=== PATIENT | male | born 1960 | race African-American/Black ===

== ENCOUNTER 2020-03-02 10:59 | Outpatient (REF) | payer OTHER, SELFPAY ==
[2020-03-02 12:31] LABS: MANUAL DIFF FLAG NO
[2020-03-02 12:51] LABS: Basophils Percent Auto 0.7 % (0-2); Eosinophils Absolute Auto 0.2 X10*3/uL (0.0-0.4); Eosinophils Percent Auto 4.9 % (0-4); Hematocrit 34.3 % (42-52); Hemoglobin 10.5 g/dl (14.0-18.0); Imm Gran Abs Auto 0.01 X10*3/uL (0.00-0.03); Imm Gran Pct Auto 0.2 % (0.0-0.4); Lymphocytes Absolute Auto 1.5 X10*3/uL (1.2-4.9); Lymphocytes Percent Auto 32.8 % (20-40); Mean Corpuscular HGB Conc 30.6 g/dl (31.0-36.0); Mean Corpuscular Hemoglobin 23.6 pg (27.0-33.0); Mean Corpuscular Volume 77.3 fL (80-98); Mean Platelet Volume 10.5 fL (9.4-12.4); Monocytes Absolute Auto 0.4 X10*3/uL (0.1-1.2); Monocytes Percent Auto 9.2 % (2-11); Neutrophils Absolute Auto 2.3 X10*3/uL (2.0-8.3); Neutrophils Percent Auto 52.2 % (45-73); Platelet Count 247 X10*3/uL (160-400); Red Blood Count 4.44 X10*6/uL (4.60-5.80); Red Cell Distribution Width 16.5 % (11.0-16.0); White Blood Count 4.5 X10*3/uL (4.8-10.8)
[2020-03-02 13:10] LABS: Alanine Aminotransferase 18 U/L (0-40); Albumin Level 3.8 g/dL (3.5-5.0); Alkaline Phosphatase 107 U/L (39-117); Anion Gap 10 (12-20); Aspartate Amino Transferase 14 U/L (5-37); Bilirubin Total 0.4 mg/dL (0.0-1.0); Blood Urea Nitrogen 33 mg/dL (9-16); C Reactive Protein 0.28 mg/dL (< or = 0.50); Calcium 8.6 mg/dL (8.4-10.2); Carbon Dioxide 31 mmol/L (22-29); Chloride 106 mmol/L (96-108); Estimated Glomerular Filt Rate 29; Glucose Random 139 mg/dL (60-115); Potassium 4.6 mmol/l (3.3-5.1); Sodium 142 mmol/L (135-145); Total Protein 6.3 g/dL (6.5-8.0)
[2020-03-02 13:42] LABS: Erythrocyte Sedimentation Rate 7 MM/HR (0-15)
== END 2020-03-02 11:00 | disposition home or self-care (01) ==
LOC: HO.LAB 10:59
PROVIDERS: PCP Physician Assistant Medical; Visit Provider Student in an Organized Health Care Education/Training Program
DX: M05.9 Rheumatoid arthritis with rheumatoid factor, unspecified (principal)
CPT/HCPCS: 36415; 80053; 85025; 85652; 86140

== ENCOUNTER → 2020-03-07 10:47 | Outpatient (BNVA) | payer OTHER, SELFPAY | PROVIDERS: PCP Physician Assistant Medical; Referring Provider Physician Assistant Medical; Visit Provider Student in an Organized Health Care Education/Training Program | DX: M05.9 Rheumatoid arthritis with rheumatoid factor, unspecified (principal); M19.012 Primary osteoarthritis, left shoulder; M19.011 Primary osteoarthritis, right shoulder; Z79.899 Other long term (current) drug therapy | CPT/HCPCS: 99212 ==

== ENCOUNTER 2020-07-03 09:29 | Outpatient (REF) | payer OTHER, SELFPAY ==
[2020-07-03 10:18] LABS: MANUAL DIFF FLAG NO
[2020-07-03 10:23] LABS: Basophils Percent Auto 0.2 % (0-2); Eosinophils Absolute Auto 0.2 X10*3/uL (0.0-0.4); Eosinophils Percent Auto 3.8 % (0-4); Hematocrit 33.1 % (42-52); Hemoglobin 9.9 g/dl (14.0-18.0); Imm Gran Abs Auto 0.02 X10*3/uL (0.00-0.03); Imm Gran Pct Auto 0.4 % (0.0-0.4); Lymphocytes Absolute Auto 1.7 X10*3/uL (1.2-4.9); Lymphocytes Percent Auto 37.2 % (20-40); Mean Corpuscular HGB Conc 29.9 g/dl (31.0-36.0); Mean Corpuscular Hemoglobin 23.1 pg (27.0-33.0); Mean Corpuscular Volume 77.2 fL (80-98); Mean Platelet Volume 9.6 fL (9.4-12.4); Monocytes Absolute Auto 0.7 X10*3/uL (0.1-1.2); Neutrophils Percent Auto 43.4 % (45-73); Platelet Count 231 X10*3/uL (160-400); Red Blood Count 4.29 X10*6/uL (4.60-5.80); Red Cell Distribution Width 16.9 % (11.0-16.0); White Blood Count 4.5 X10*3/uL (4.8-10.8)
[2020-07-03 10:48] LABS: Alanine Aminotransferase 20 U/L (0-40); Albumin Level 3.8 g/dL (3.5-5.0); Alkaline Phosphatase 127 U/L (39-117); Anion Gap 13 (12-20); Aspartate Amino Transferase 17 U/L (5-37); Bilirubin Total 0.6 mg/dL (0.0-1.0); Blood Urea Nitrogen 24 mg/dL (9-16); C Reactive Protein 1.94 mg/dL (< or = 0.50); Calcium 8.6 mg/dL (8.4-10.2); Carbon Dioxide 25 mmol/L (22-29); Chloride 106 mmol/L (96-108); Estimated Glomerular Filt Rate 27; Glucose Random 108 mg/dL (60-115); Potassium 3.6 mmol/L (3.3-5.1); Sodium 140 mmol/L (135-145); Total Protein 6.4 g/dL (6.5-8.0)
[2020-07-03 11:28] LABS: Erythrocyte Sedimentation Rate 19 MM/HR (0-15)
== END 2020-07-03 09:30 | disposition home or self-care (01) ==
LOC: HO.LAB 09:29
PROVIDERS: PCP Physician Assistant Medical; Visit Provider Student in an Organized Health Care Education/Training Program
DX: M05.9 Rheumatoid arthritis with rheumatoid factor, unspecified (principal)
CPT/HCPCS: 36415; 80053; 85025; 85652; 86140

== ENCOUNTER → 2020-07-05 10:41 | Outpatient (BNVA) | payer OTHER, SELFPAY | PROVIDERS: Visit Provider Student in an Organized Health Care Education/Training Program | DX: M05.9 Rheumatoid arthritis with rheumatoid factor, unspecified (principal) | CPT/HCPCS: 99212 ==

== ENCOUNTER 2020-10-05 10:20 | Outpatient (REF) | payer OTHER, SELFPAY ==
[2020-10-05 11:31] LABS: MANUAL DIFF FLAG NO
[2020-10-05 11:35] LABS: Basophils Percent Auto 0.5 % (0-2); Eosinophils Absolute Auto 0.4 X10*3/uL (0.0-0.4); Eosinophils Percent Auto 9.7 % (0-4); Hematocrit 32.2 % (42-52); Hemoglobin 9.9 g/dl (14.0-18.0); Imm Gran Abs Auto 0.01 X10*3/uL (0.00-0.03); Imm Gran Pct Auto 0.2 % (0.0-0.4); Lymphocytes Absolute Auto 1.4 X10*3/uL (1.2-4.9); Lymphocytes Percent Auto 32.3 % (20-40); Mean Corpuscular HGB Conc 30.7 g/dl (31.0-36.0); Mean Corpuscular Hemoglobin 23.1 pg (27.0-33.0); Mean Corpuscular Volume 75.1 fL (80-98); Mean Platelet Volume 9.6 fL (9.4-12.4); Monocytes Absolute Auto 0.5 X10*3/uL (0.1-1.2); Monocytes Percent Auto 10.2 % (2-11); Neutrophils Absolute Auto 2.1 X10*3/uL (2.0-8.3); Neutrophils Percent Auto 47.1 % (45-73); Platelet Count 241 X10*3/uL (160-400); Red Blood Count 4.29 X10*6/uL (4.60-5.80); Red Cell Distribution Width 18.3 % (11.0-16.0); White Blood Count 4.4 X10*3/uL (4.8-10.8)
[2020-10-05 12:07] LABS: Alanine Aminotransferase 32 U/L (0-40); Albumin Level 3.6 g/dL (3.5-5.0); Alkaline Phosphatase 120 U/L (39-117); Anion Gap 7 (12-20); Aspartate Amino Transferase 23 U/L (5-37); Bilirubin Total 0.4 mg/dL (0.0-1.0); Blood Urea Nitrogen 28 mg/dL (9-16); C Reactive Protein 0.24 mg/dL (< or = 0.50); Calcium 8.7 mg/dL (8.4-10.2); Carbon Dioxide 29 mmol/L (22-29); Chloride 110 mmol/L (96-108); Estimated Glomerular Filt Rate 28; Glucose Random 83 mg/dL (60-115); Potassium 4.1 mmol/L (3.3-5.1); Sodium 142 mmol/L (135-145); Total Protein 6.1 g/dL (6.5-8.0)
[2020-10-05 12:14] LABS: Erythrocyte Sedimentation Rate 27 MM/HR (0-15)
== END 2020-10-05 10:21 | disposition home or self-care (01) ==
LOC: HO.LAB 10:20
PROVIDERS: PCP Physician Assistant Medical; Visit Provider Student in an Organized Health Care Education/Training Program
DX: M05.9 Rheumatoid arthritis with rheumatoid factor, unspecified (principal); Z79.899 Other long term (current) drug therapy; Z87.891 Personal history of nicotine dependence
CPT/HCPCS: 36415; 80053; 85025; 85652; 86140; 99212

== ENCOUNTER 2020-12-29 09:23 | Outpatient (REF) | payer OTHER, SELFPAY ==
[2020-12-29 11:32] LABS: MANUAL DIFF FLAG NO
[2020-12-29 11:38] LABS: Basophils Percent Auto 0.7 % (0-2); Eosinophils Absolute Auto 0.3 X10*3/uL (0.0-0.4); Eosinophils Percent Auto 6.5 % (0-4); Hematocrit 32.8 % (42-52); Hemoglobin 9.9 g/dl (14.0-18.0); Imm Gran Abs Auto 0.01 X10*3/uL (0.00-0.03); Imm Gran Pct Auto 0.2 % (0.0-0.4); Lymphocytes Absolute Auto 1.4 X10*3/uL (1.2-4.9); Lymphocytes Percent Auto 32.9 % (20-40); Mean Corpuscular HGB Conc 30.2 g/dl (31.0-36.0); Mean Corpuscular Hemoglobin 23.1 pg (27.0-33.0); Mean Corpuscular Volume 76.5 fL (80-98); Monocytes Absolute Auto 0.5 X10*3/uL (0.1-1.2); Monocytes Percent Auto 10.9 % (2-11); Neutrophils Absolute Auto 2.1 X10*3/uL (2.0-8.3); Neutrophils Percent Auto 48.8 % (45-73); Platelet Count 263 X10*3/uL (160-400); Red Blood Count 4.29 X10*6/uL (4.60-5.80); Red Cell Distribution Width 16.9 % (11.0-16.0); White Blood Count 4.3 X10*3/uL (4.8-10.8)
[2020-12-29 12:16] LABS: Erythrocyte Sedimentation Rate 26 MM/HR (0-15)
[2020-12-29 12:23] LABS: Alanine Aminotransferase 24 U/L (0-40); Albumin Level 4.3 g/dL (3.5-5.0); Alkaline Phosphatase 122 U/L (39-117); Anion Gap 12 (12-20); Aspartate Amino Transferase 17 U/L (5-37); Bilirubin Total 0.5 mg/dL (0.0-1.0); Blood Urea Nitrogen 49 mg/dL (9-16); C Reactive Protein 0.42 mg/dL (< or = 0.50); Calcium 9.6 mg/dL (8.4-10.2); Carbon Dioxide 24 mmol/L (22-29); Chloride 110 mmol/L (96-108); Estimated Glomerular Filt Rate 20; Glucose Random 72 mg/dL (60-115); Sodium 140 mmol/L (135-145); Total Protein 7.2 g/dL (6.5-8.0)
[2020-12-29 16:23] LABS: Iron 59 mcg/dL (45-160); Percent Iron Saturation 20 % (15-50); Total Iron Binding Capacity 294 mcg/dL (228-428); Unsaturated Iron Binding 235 ug/dL
[2020-12-29 16:43] LABS: Ferritin 202 ng/mL (20-250)
== END 2020-12-29 09:24 | disposition home or self-care (01) ==
LOC: HO.LAB 09:23
PROVIDERS: PCP Physician Assistant Medical; Visit Provider Nurse Practitioner Family
DX: M05.9 Rheumatoid arthritis with rheumatoid factor, unspecified (principal); D64.9 Anemia, unspecified; Z79.899 Other long term (current) drug therapy; Z87.891 Personal history of nicotine dependence
CPT/HCPCS: 36415; 80053; 82728; 83540; 85025; 85652; 86140

== ENCOUNTER 2021-04-09 12:21 | Outpatient (REF) | payer OTHER, SELFPAY ==
[2021-04-09 13:39] LABS: MANUAL DIFF FLAG NO
[2021-04-09 14:35] LABS: Basophils Percent Auto 0.4 % (0-2); Eosinophils Absolute Auto 0.2 X10*3/uL (0.0-0.4); Eosinophils Percent Auto 5.2 % (0-4); Hematocrit 32.4 % (42.0-52.0); Hemoglobin 9.9 g/dl (14.0-18.0); Lymphocytes Absolute Auto 1.6 X10*3/uL (1.2-4.9); Lymphocytes Percent Auto 36.8 % (20-40); Mean Corpuscular HGB Conc 30.6 g/dl (31.0-36.0); Mean Corpuscular Hemoglobin 23.9 pg (27.0-33.0); Mean Corpuscular Volume 78.1 fL (80.0-98.0); Mean Platelet Volume 9.9 fL (9.4-12.4); Monocytes Absolute Auto 0.6 X10*3/uL (0.1-1.2); Monocytes Percent Auto 12.6 % (2-11); Platelet Count 210 X10*3/uL (160-400); Red Blood Count 4.15 X10*6/uL (4.60-5.80); Red Cell Distribution Width 16.9 % (11.0-16.0); White Blood Count 4.5 X10*3/uL (4.8-10.8)
[2021-04-09 15:03] LABS: Alanine Aminotransferase 24 U/L (0-40); Albumin Level 4.2 g/dL (3.5-5.0); Alkaline Phosphatase 106 U/L (39-117); Anion Gap 11 (12-20); Aspartate Amino Transferase 18 U/L (5-37); Bilirubin Total 0.4 mg/dL (0.0-1.0); Blood Urea Nitrogen 56 mg/dL (9-16); C Reactive Protein 0.36 mg/dL (< or = 0.50); Calcium 9.4 mg/dL (8.4-10.2); Carbon Dioxide 24 mmol/L (22-29); Chloride 111 mmol/L (96-108); Estimated Glomerular Filt Rate 17; Glucose Random 77 mg/dL (60-115); Potassium 5.4 mmol/L (3.3-5.1); Sodium 141 mmol/L (135-145); Total Protein 6.9 g/dL (6.5-8.0)
[2021-04-09 15:17] LABS: Erythrocyte Sedimentation Rate 13 MM/HR (0-15)
== END 2021-04-09 12:22 | disposition home or self-care (01) ==
LOC: HO.LAB 12:21
PROVIDERS: PCP Physician Assistant Medical; Visit Provider Nurse Practitioner Family
DX: M05.9 Rheumatoid arthritis with rheumatoid factor, unspecified (principal)
CPT/HCPCS: 36415; 80053; 85025; 85652; 86140; 99212

== ENCOUNTER 2021-07-05 09:42 | Outpatient (REF) | payer OTHER, SELFPAY ==
[2021-07-05 10:03] LABS: MANUAL DIFF FLAG NO
[2021-07-05 10:23] LABS: Basophils Percent Auto 0.5 % (0-2); Eosinophils Absolute Auto 0.2 X10*3/uL (0.0-0.4); Eosinophils Percent Auto 5.2 % (0-4); Hematocrit 33.9 % (42.0-52.0); Hemoglobin 10.2 g/dl (14.0-18.0); Lymphocytes Absolute Auto 1.2 X10*3/uL (1.2-4.9); Lymphocytes Percent Auto 33.8 % (20-40); Mean Corpuscular HGB Conc 30.1 g/dl (31.0-36.0); Mean Corpuscular Hemoglobin 23.1 pg (27.0-33.0); Mean Corpuscular Volume 76.7 fL (80.0-98.0); Mean Platelet Volume 9.2 fL (9.4-12.4); Monocytes Absolute Auto 0.4 X10*3/uL (0.1-1.2); Monocytes Percent Auto 9.6 % (2-11); Neutrophils Absolute Auto 1.9 x10*3/uL (2.0-8.3); Neutrophils Percent Auto 50.9 % (45-73); Platelet Count 197 X10*3/uL (160-400); Red Blood Count 4.42 X10*6/uL (4.60-5.80); Red Cell Distribution Width 16.6 % (11.0-16.0); White Blood Count 3.6 X10*3/uL (4.8-10.8)
[2021-07-05 11:00] LABS: Alanine Aminotransferase 24 U/L (0-40); Albumin Level 4.1 g/dL (3.5-5.0); Alkaline Phosphatase 107 U/L (39-117); Anion Gap 14 (12-20); Aspartate Amino Transferase 15 U/L (5-37); Bilirubin Total 0.4 mg/dL (0.0-1.0); Blood Urea Nitrogen 53 mg/dL (9-16); C Reactive Protein 0.22 mg/dL (< or = 0.50); Calcium 9.3 mg/dL (8.4-10.2); Carbon Dioxide 22 mmol/L (22-29); Chloride 110 mmol/L (96-108); Estimated Glomerular Filt Rate 20; Glucose Random 115 mg/dL (60-115); Potassium 5.6 mmol/L (3.3-5.1); Sodium 140 mmol/L (135-145); Total Protein 6.9 g/dL (6.5-8.0)
[2021-07-05 11:13] LABS: Erythrocyte Sedimentation Rate 8 MM/HR (0-15)
== END 2021-07-05 09:43 | disposition home or self-care (01) ==
LOC: HO.LAB 09:42
PROVIDERS: PCP Physician Assistant Medical; Visit Provider Nurse Practitioner Family
DX: M05.9 Rheumatoid arthritis with rheumatoid factor, unspecified (principal)
CPT/HCPCS: 36415; 80053; 85025; 85652; 86140

== ENCOUNTER 2021-07-05 16:51 | Emergency (ER) | payer OTHER, SELFPAY ==
[2021-07-05 17:03] VITALS: BP 154/67; PULSE 61; RESP 19; TEMP 36.6; O2SAT 96; BMI 46.5
--- NOTE | 2021-07-05 17:08 | ECG_ITS ---
Test Reason : ABNORMAL LABS Blood Pressure : / mmHG Vent. Rate : 054 BPM Atrial Rate : 054 BPM P-R Int : 190 ms QRS Dur : 106 ms QT Int : 430 ms P-R-T Axes : 058 -19 069 degrees QTc Int : 407 ms Sinus bradycardia Nonspecific T wave abnormality Abnormal ECG No previous ECGs available Referred By: Generic ED Physician Electronically Signed By:RHEA DE LA GARZA
[2021-07-05 18:36] LABS: MANUAL DIFF FLAG NO
[2021-07-05 18:39] LABS: Basophils Percent Auto 0.5 % (0-2); Eosinophils Absolute Auto 0.2 X10*3/uL (0.0-0.4); Eosinophils Percent Auto 4.4 % (0-4); Hematocrit 34.9 % (42.0-52.0); Hemoglobin 10.7 g/dl (14.0-18.0); Imm Gran Abs Auto 0.01 X10*3/uL (0.00-0.03); Imm Gran Pct Auto 0.2 % (0.0-0.4); Lymphocytes Absolute Auto 1.6 X10*3/uL (1.2-4.9); Lymphocytes Percent Auto 36.6 % (20-40); Mean Corpuscular HGB Conc 30.7 g/dl (31.0-36.0); Mean Corpuscular Hemoglobin 23.6 pg (27.0-33.0); Mean Platelet Volume 8.9 fL (9.4-12.4); Monocytes Absolute Auto 0.5 X10*3/uL (0.1-1.2); Monocytes Percent Auto 11.7 % (2-11); Neutrophils Percent Auto 46.6 % (45-73); Platelet Count 192 X10*3/uL (160-400); Red Blood Count 4.53 X10*6/uL (4.60-5.80); Red Cell Distribution Width 16.9 % (11.0-16.0); White Blood Count 4.3 X10*3/uL (4.8-10.8)
[2021-07-05 18:58] LABS: Anion Gap 15 (12-20); Blood Urea Nitrogen 54 mg/dL (9-16); Calcium 9.1 mg/dL (8.4-10.2); Carbon Dioxide 22 mmol/L (22-29); Chloride 108 mmol/L (96-108); Creatinine Clr Calc Pharmacy 29.2; Estimated Glomerular Filt Rate 17; Glucose Random 77 mg/dL (60-115); Potassium 5.9 mmol/L (3.3-5.1); Sodium 139 mmol/L (135-145); Troponin-I High Sensitivity 8.7 ng/L (<3.5-35.0)
[2021-07-05 22:19] VITALS: BP 141/70; PULSE 54; RESP 16; TEMP 36.5; O2SAT 98
--- NOTE | 2021-07-06 00:23 | ED_ITS ---
HPI - General Adult General Chief complaint: Recheck/Abnormal Lab/Rx Stated complaint: checked 07/04, high potassium lvls Time Seen by Provider: 07/06/21 00:22 Source: patient Mode of arrival: ambulatory History of Present Illness HPI narrative: 61-year-old male who presents with chronic abnormal potassium levels and was instructed to follow-up here at the emergency room. Patient has history of atrial fibrillation is currently on anticoagulation as well as hypertension, diabetes. Patient denies any muscle cramping, chest pain/palpitations, shortness of breath. Related Data Home Medications Medication Instructions Recorded Confirmed atorvastatin 80 mg tablet 80 mg PO DAILY 03/07/20 04/09/21 carboxymethylcellulose sodium 0.5 1 drp OPHTHALMIC (EYE) QID PRN 03/07/20 04/09/21 % eye drops cholecalciferol (vitamin D3) 25 25 mcg PO DAILY 03/07/20 04/09/21 mcg (1,000 unit) capsule colchicine 0.6 mg tablet 0.6 mg PO DAILY PRN 03/07/20 04/09/21 finasteride 5 mg tablet 5 mg PO DAILY 03/07/20 04/09/21 furosemide 40 mg tablet 40 mg PO DAILY 03/07/20 04/09/21 gabapentin 600 mg tablet 600 mg PO BEDTIME 03/07/20 04/09/21 glipizide 5 mg tablet 5 mg PO BID 03/07/20 04/09/21 labetalol 300 mg tablet 300 mg PO BID 03/07/20 04/09/21 magnesium oxide 420 mg tablet 420 mg PO DAILY 03/07/20 04/09/21 rivaroxaban 20 mg tablet (Xarelto) 20 mg PO DAILY 03/07/20 04/09/21 sodium bicarbonate 650 mg tablet 650 mg PO BID 03/07/20 04/09/21 spironolactone 25 mg tablet 25 mg PO DAILY 03/07/20 04/09/21 valsartan 160 mg tablet 160 mg PO DAILY 03/07/20 04/09/21 hydralazine 100 mg tablet 100 mg PO TID tab 12/29/20 04/09/21 Previous Rx's Medication Instructions Recorded adalimumab 40 mg/0.8 mL 40 mg (0.8 mL) SUBCUT Q2W #2 ea 02/21/21 subcutaneous syringe kit (HumRico) sodium zirconium cyclosilicate 10 10 g PO TID 7 Days #30 ea 07/06/21 gram oral powder packet (Lokelma) Allergies Allergy/AdvReac Type Severity Reaction Status Date / Time morphine Allergy Intermediate itchiness Verified 04/09/21 12:43 ibuprofen Allergy Unknown kidney Verified 04/09/21 12:43 disease Review of Systems Review of Systems: Pertinent positives and negatives as stated in HPI 10 point review of systems is otherwise negative. PMFSH Past Medical History Source: nursing notes reviewed Medical History Afib Diabetes HTN (hypertension) Kidney disease Seropositive rheumatoid arthritis Social History Social History Alcohol intake: current Alcohol intake frequency: holidays/special occasions only Alcohol type: wine Patient Tobacco Use Status: Former Tobacco user Cigarettes Per Day: 5 Years Smoked: 20 Advance Directives: No Advance Directives Information Provided: No Physical Exam ED Vital Signs: Vital Signs - 24 hr 07/05/21 17:03 07/05/21 22:19 07/06/21 01:29 Temperature 98 F 97.7 F Pulse Rate 61 54 51 Respiratory Rate 19 16 20 Blood Pressure 154/67 H 141/70 H 137/67 Pulse Oximetry 96 98 98 07/06/21 01:39 Temperature 97.8 F Pulse Rate Respiratory Rate Blood Pressure Pulse Oximetry BMI result Body Mass Index 46.5 VITAL SIGNS: Reviewed. GENERAL: Well developed, well nourished, in no acute distress. HEAD: Normocephalic/atraumatic EYES: PERRLA, EOMI EARS: Ext canals without abnormality OROPHARYNX: no oral lesions noted, posterior pharynx clear LUNGS: Normal breath sounds. No adventitious sounds or accessory muscle use. SpO2<96> CARDIOVASCULAR: Regular rate and rhythm without noted murmurs, no JVD or lower extremity edema. ABDOMEN: Soft, non-tender, non-distended with bowel sounds. MUSCULOSKELETAL: No tenderness, deformities, or effusions noted on gross inspection. EXTREMITIES: No cyanosis, clubbing or edema. SKIN: Inspection of the skin reveals no rashes NEUROLOGIC: Alert and oriented x 4. Strength and sensation to light touch were grossly intact x 4. Course Course Course Narrative: 61[facility]ology [facility] at [facility] and on review of previous results has had consistent worsening of potassium levels with known CKD. Patient states that his physician at the [facility] did lower the dosage of his spironolactone and that he is in the process of following up with Nephrology. Otherwise, he has no cardiac or muscular complaints. On review of all investigations the potassium is noted to be 5.9 but he is otherwise asymptomatic and will received Lokelma as well as 500 cc of normal saline. He will then be discharged home in stable condition with instructions to follow-up with outpatient lab work as well as contacting his primary care provider at the [facility] as well as discussing the plan with rheumatology. Patient is otherwise hemodynamically stable. Medical Decision Making Lab Data Result diagrams: 07/05/21 18:32 07/05/21 18:32 Labs: Lab Results 07/05/21 07/05/21 07/05/21 Range/Units 18:32 18:32 18:32 WBC 4.3 L (4.8-10.8) X10*3/uL RBC 4.53 L (4.60-5.80) X10*6/uL Hgb 10.7 L (14.0-18.0) g/dl Hct 34.9 L (42.0-52.0) % MCV 77.0 L (80.0-98.0) fL MCH 23.6 L (27.0-33.0) pg MCHC 30.7 L (31.0-36.0) g/dl RDW 16.9 H (11.0-16.0) % Plt Count 192 (160-400) X10*3/uL MPV 8.9 L (9.4-12.4) fL Immature Gran % (Auto) 0.2 (0.0-0.4) % Neut % (Auto) 46.6 (45-73) % Lymph % (Auto) 36.6 (20-40) % Stewart % (Auto) 11.7 H (2-11) % Eos % (Auto) 4.4 H (0-4) % Baso % (Auto) 0.5 (0-2) % Lymph # (Auto) 1.6 (1.2-4.9) X10*3/uL Stewart # (Auto) 0.5 (0.1-1.2) X10*3/uL Eos # (Auto) 0.2 (0.0-0.4) X10*3/uL Baso # (Auto) 0.0 (0.0-0.2) X10*3/uL Abs Immat Gran (auto) 0.01 (0.00-0.03) X10*3/uL Absolute Neuts (auto) 2.0 (2.0-8.3) x10*3/uL Absolute Nucleated RBC 0.000 (0.0-0.012) X10*3/uL Nucleated RBC % (auto) 0.0 (0.0-0.2) /100WBC Sodium 139 (135-145) mmol/L Potassium 5.9 H (3.3-5.1) mmol/L Chloride 108 (96-108) mmol/L Carbon Dioxide 22 (22-29) mmol/L Anion Gap 15 (12-20) BUN 54 H (9-16) mg/dL Creatinine 3.69 H (0.5-1.4) mg/dL Estim Creat Clear Calc 29.2 Estimated GFR 17 Random Glucose 77 (60-115) mg/dL Calcium 9.1 (8.4-10.2) mg/dL Troponin I High Sens 8.7 (<3.5-35.0) ng/L Discharge Plan Discharge Clinical Impression: CKD (chronic kidney disease), Chronic hyperkalemia Patient Disposition: Home, Self-Care Instructions: Chronic Kidney Disease (ED), Potassium Content of Foods List (ED), Hyperkalemia (ED) Additional Instructions: 1. Resume all home medications as prescribed. 2. You have been started on Lokelma, which is a medication to help address your potassium levels. Please take as prescribed and inform your physician that you have been started on this medication. 3. In addition, please review the list of potassium containing foods and try to avoid these as much as possible. 4. You need to repeat your potassium levels today. 5. Please call your primary care provider as well as your customs import specialist and inform them that you have been started on the above medication and that you need to have your lab work followed up. Do not hesitate to return to the emergency room for any worsening or development of chest pain/palpitations/muscle cramping. Prescriptions: New Lokelma 10 gram powder in packet 10 g PO TID 7 Days Qty: 30 0RF No Action Humira 40 mg/0.8 mL syringe kit 40 mg subcut Q2W Qty: 2 3RF Xarelto 20 mg tablet 20 mg PO DAILY 0RF Rx Instructions: must administer with evening meal glipizide 5 mg tablet 5 mg PO BID 0RF spironolactone 25 mg tablet 25 mg PO DAILY 0RF cholecalciferol (vitamin D3) 25 mcg (1,000 unit) capsule 25 mcg PO DAILY 0RF finasteride 5 mg tablet 5 mg PO DAILY 0RF atorvastatin 80 mg tablet 80 mg PO DAILY 0RF valsartan 160 mg tablet 160 mg PO DAILY 0RF furosemide 40 mg tablet 40 mg PO DAILY 0RF labetalol 300 mg tablet 300 mg PO BID 0RF sodium bicarbonate 650 mg tablet 650 mg PO BID 0RF gabapentin 600 mg tablet 600 mg PO BEDTIME 0RF colchicine 0.6 mg tablet 0.6 mg PO DAILY PRN0RF magnesium oxide 420 mg tablet 420 mg PO DAILY 0RF carboxymethylcellulose sodium 0.5 % drops 1 drp ophthalmic (eye) QID PRN0RF hydralazine 100 mg tablet 100 mg PO TID 0RF
[2021-07-06] MEDS: Sodium Zirconium Cyclosilicate 10 GM POWD.PACK PO (01:05)
[2021-07-06] MEDS: 0.9 % Sodium Chloride 500 ML 999 ML IV (01:15)
[2021-07-06 01:29] VITALS: BP 137/67; PULSE 51; RESP 20; O2SAT 98
[2021-07-06 01:39] VITALS: TEMP 36.6
--- NOTE | 2021-07-06 02:33 | PC.NURSE ---
I assumed nursing care of this patient upon his arrival to bed 14 from the waiting room. He states he was sent to the ED due to eleveated serum potassium levels. he states they're always sending me here for this. Always. he has no complaints. He has remained alert and oriented x 3, makes eye contact with Rn and has been calm and cooperative and extremely pleasant and appreciative. No chest pain. No SOB. Speech clear and appropriate. he has been ambulating throughout his room independently and with steady gait. No nausea. No vomiting. he is taking PO fluids without difficulty. IV access was obtained on Piero and 1/2 L NS was given per MD order. He huff been discharged at this time and has verbalized an understanding of all DC orders. He ambulated out of the ED independently and with steady gait.
== END 2021-07-06 02:43 | disposition home or self-care (01) ==
PROVIDERS: Emergency Provider Student in an Organized Health Care Education/Training Program
DX: E87.5 Hyperkalemia (principal); E11.22 Type 2 diabetes mellitus with diabetic chronic kidney disease; I12.9 Hypertensive chronic kidney disease with stage 1 through stage 4 chronic kidney disease, or unspecified chronic kidney disease; N18.9 Chronic kidney disease, unspecified; I48.91 Unspecified atrial fibrillation; Z79.02 Long term (current) use of antithrombotics/antiplatelets; Z79.01 Long term (current) use of anticoagulants
CPT/HCPCS: 36415; 80048; 84484; 85025; 93005; 99283; 99284

== ENCOUNTER → 2021-07-06 13:20 | Outpatient (BNVA) | payer OTHER, SELFPAY | PROVIDERS: PCP Physician Assistant Medical; Visit Provider Nurse Practitioner Family | DX: M05.9 Rheumatoid arthritis with rheumatoid factor, unspecified (principal); M25.512 Pain in left shoulder; N28.9 Disorder of kidney and ureter, unspecified | CPT/HCPCS: 99212 ==

== ENCOUNTER 2021-07-18 10:27 | Outpatient (REF) | payer OTHER, SELFPAY ==
--- NOTE | ~2021-07-18 | XR_ITS ---
EXAMINATION: XR SHOULDER, LEFT CLINICAL INFORMATION: Chronic left shoulder pain COMPARISON: None TECHNIQUE: Four views of the left shoulder. FINDINGS: No fracture or dislocation. The glenohumeral joint is well aligned. There is narrowing of the joint space with subchondral sclerosis. Prominent osteophytes. The acromioclavicular joint is intact with prominent hypertrophic degenerative change. The visualized lung is clear. The visualized ribs are intact. XR/XR shoulder LT min 2V IMPRESSION: Severe degenerative changes at the left shoulder.
== END 2021-07-18 10:28 | disposition home or self-care (01) ==
LOC: HO.XRAY 10:27
PROVIDERS: PCP Physician Assistant Medical; Visit Provider Nurse Practitioner Family
DX: M25.512 Pain in left shoulder (principal)
CPT/HCPCS: 73030

== ENCOUNTER 2021-10-09 15:19 | Outpatient (REF) | payer OTHER, SELFPAY ==
[2021-10-09 15:30] LABS: MANUAL DIFF FLAG NO
[2021-10-09 15:40] LABS: Basophils Percent Auto 0.4 % (0-2); Eosinophils Absolute Auto 0.2 X10*3/uL (0.0-0.4); Eosinophils Percent Auto 4.7 % (0-4); Hematocrit 31.8 % (42.0-52.0); Hemoglobin 9.9 g/dl (14.0-18.0); Imm Gran Abs Auto 0.01 X10*3/uL (0.00-0.03); Imm Gran Pct Auto 0.2 % (0.0-0.4); Lymphocytes Absolute Auto 1.8 X10*3/uL (1.2-4.9); Lymphocytes Percent Auto 38.9 % (20-40); Mean Corpuscular HGB Conc 31.1 g/dl (31.0-36.0); Mean Corpuscular Hemoglobin 23.9 pg (27.0-33.0); Mean Corpuscular Volume 76.8 fL (80.0-98.0); Mean Platelet Volume 9.5 fL (9.4-12.4); Monocytes Absolute Auto 0.5 X10*3/uL (0.1-1.2); Monocytes Percent Auto 9.7 % (2-11); Neutrophils Absolute Auto 2.2 x10*3/uL (2.0-8.3); Neutrophils Percent Auto 46.1 % (45-73); Platelet Count 213 X10*3/uL (160-400); Red Blood Count 4.14 X10*6/uL (4.60-5.80); Red Cell Distribution Width 17.4 % (11.0-16.0); White Blood Count 4.7 X10*3/uL (4.8-10.8)
[2021-10-09 16:17] LABS: Erythrocyte Sedimentation Rate 10 MM/HR (0-15)
[2021-10-09 16:25] LABS: Alanine Aminotransferase 17 U/L (0-40); Albumin Level 4.4 g/dL (3.5-5.0); Alkaline Phosphatase 108 U/L (39-117); Anion Gap 12 (12-20); Aspartate Amino Transferase 14 U/L (5-37); Bilirubin Total 0.5 mg/dL (0.0-1.0); Blood Urea Nitrogen 54 mg/dL (9-16); C Reactive Protein 0.39 mg/dL (< or = 0.50); Calcium 8.8 mg/dL (8.4-10.2); Carbon Dioxide 22 mmol/L (22-29); Chloride 109 mmol/L (96-108); Estimated Glomerular Filt Rate 19; Glucose Random 68 mg/dL (60-115); Potassium 4.9 mmol/L (3.3-5.1); Sodium 138 mmol/L (135-145); Total Protein 7.2 g/dL (6.5-8.0)
== END 2021-10-09 15:20 | disposition home or self-care (01) ==
LOC: HO.LAB 15:19
PROVIDERS: PCP Physician Assistant Medical; Visit Provider Nurse Practitioner Family
DX: M05.9 Rheumatoid arthritis with rheumatoid factor, unspecified (principal); M25.512 Pain in left shoulder; N28.9 Disorder of kidney and ureter, unspecified
CPT/HCPCS: 36415; 80053; 85025; 85652; 86140; 99212

== ENCOUNTER → 2022-02-26 12:57 | Outpatient (BNVA) | payer OTHER, SELFPAY | PROVIDERS: PCP Physician Assistant Medical; Visit Provider Nurse Practitioner Family | DX: M05.9 Rheumatoid arthritis with rheumatoid factor, unspecified (principal); N28.9 Disorder of kidney and ureter, unspecified | CPT/HCPCS: 99212 ==

== ENCOUNTER 2022-03-08 10:23 | Outpatient (REF) | payer OTHER, SELFPAY ==
[2022-03-08 10:33] LABS: MANUAL DIFF FLAG NO
[2022-03-08 11:57] LABS: Basophils Percent Auto 0.6 % (0-2); Eosinophils Absolute Auto 0.3 X10*3/uL (0.0-0.4); Eosinophils Percent Auto 5.5 % (0-4); Hematocrit 33.2 % (42.0-52.0); Hemoglobin 9.9 g/dl (14.0-18.0); Imm Gran Abs Auto 0.01 X10*3/uL (0.00-0.03); Imm Gran Pct Auto 0.2 % (0.0-0.4); Lymphocytes Absolute Auto 1.5 X10*3/uL (1.2-4.9); Lymphocytes Percent Auto 28.4 % (20-40); Mean Corpuscular HGB Conc 29.8 g/dl (31.0-36.0); Mean Corpuscular Hemoglobin 23.1 pg (27.0-33.0); Mean Corpuscular Volume 77.4 fL (80.0-98.0); Mean Platelet Volume 10.3 fL (9.4-12.4); Monocytes Absolute Auto 0.4 X10*3/uL (0.1-1.2); Monocytes Percent Auto 7.9 % (2-11); Neutrophils Absolute Auto 3.1 x10*3/uL (2.0-8.3); Neutrophils Percent Auto 57.4 % (45-73); Platelet Count 264 X10*3/uL (160-400); Red Blood Count 4.29 X10*6/uL (4.60-5.80); Red Cell Distribution Width 16.7 % (11.0-16.0); White Blood Count 5.4 X10*3/uL (4.8-10.8)
[2022-03-08 12:26] LABS: Alanine Aminotransferase 14 U/L (0-40); Aspartate Amino Transferase 13 U/L (5-37); C Reactive Protein 2.97 mg/dL (< or = 0.50); Estimated Glomerular Filt Rate 17
[2022-03-08 12:43] LABS: Erythrocyte Sedimentation Rate 38 MM/HR (0-15)
== END 2022-03-08 10:24 | disposition home or self-care (01) ==
LOC: HO.LAB 10:23
PROVIDERS: PCP Physician Assistant Medical; Visit Provider Nurse Practitioner Family
DX: M05.9 Rheumatoid arthritis with rheumatoid factor, unspecified (principal); Z79.899 Other long term (current) drug therapy
CPT/HCPCS: 36415; 82565; 84450; 84460; 85025; 85652; 86140

== ENCOUNTER 2022-05-13 11:34 | Outpatient (REF) | payer OTHER, SELFPAY ==
[2022-05-13 13:26] LABS: C Reactive Protein 0.26 mg/dL (< or = 0.50); Uric Acid 9.6 mg/dL (3.4-7.0)
== END 2022-05-13 11:35 | disposition home or self-care (01) ==
LOC: HO.LAB 11:34
PROVIDERS: PCP Physician Assistant Medical; Visit Provider Nurse Practitioner Family
DX: M10.9 Gout, unspecified (principal); M05.9 Rheumatoid arthritis with rheumatoid factor, unspecified
CPT/HCPCS: 36415; 84550; 86140

== ENCOUNTER → 2022-05-29 10:36 | Outpatient (BNVA) | payer OTHER, SELFPAY | PROVIDERS: PCP Physician Assistant Medical; Visit Provider Nurse Practitioner Family | DX: M05.9 Rheumatoid arthritis with rheumatoid factor, unspecified (principal); M10.9 Gout, unspecified; N28.9 Disorder of kidney and ureter, unspecified | CPT/HCPCS: 99212 ==

== ENCOUNTER 2022-07-15 11:19 | Outpatient (REF) | payer OTHER, SELFPAY ==
[2022-07-15 11:33] LABS: MANUAL DIFF FLAG NO
[2022-07-15 11:43] LABS: Basophils Percent Auto 0.4 % (0-2); Eosinophils Absolute Auto 0.2 X10*3/uL (0.0-0.4); Eosinophils Percent Auto 5.1 % (0-4); Hemoglobin 10.1 g/dl (14.0-18.0); Imm Gran Abs Auto 0.01 X10*3/uL (0.00-0.03); Imm Gran Pct Auto 0.2 % (0.0-0.4); Lymphocytes Absolute Auto 1.4 X10*3/uL (1.2-4.9); Lymphocytes Percent Auto 30.6 % (20-40); Mean Corpuscular HGB Conc 30.6 g/dl (31.0-36.0); Mean Corpuscular Hemoglobin 23.4 pg (27.0-33.0); Mean Corpuscular Volume 76.6 fL (80.0-98.0); Mean Platelet Volume 8.7 fL (9.4-12.4); Monocytes Absolute Auto 0.5 X10*3/uL (0.1-1.2); Monocytes Percent Auto 11.3 % (2-11); Neutrophils Absolute Auto 2.4 x10*3/uL (2.0-8.3); Neutrophils Percent Auto 52.4 % (45-73); Platelet Count 208 X10*3/uL (160-400); Red Blood Count 4.31 X10*6/uL (4.60-5.80); Red Cell Distribution Width 16.3 % (11.0-16.0); White Blood Count 4.7 X10*3/uL (4.8-10.8)
[2022-07-15 12:29] LABS: Erythrocyte Sedimentation Rate 14 MM/HR (0-15)
[2022-07-15 12:57] LABS: Alanine Aminotransferase 27 U/L (0-40); Aspartate Amino Transferase 16 U/L (5-37); C Reactive Protein 0.18 mg/dL (< or = 0.50); Estimated Glomerular Filt Rate 17
== END 2022-07-15 11:20 | disposition home or self-care (01) ==
LOC: HO.LAB 11:19
PROVIDERS: PCP Physician Assistant Medical; Visit Provider Nurse Practitioner Family
DX: M05.9 Rheumatoid arthritis with rheumatoid factor, unspecified (principal); Z79.899 Other long term (current) drug therapy
CPT/HCPCS: 36415; 82565; 84450; 84460; 85025; 85652; 86140

== ENCOUNTER → 2022-07-30 09:27 | Outpatient (BNVA) | payer OTHER, SELFPAY | PROVIDERS: PCP Physician Assistant Medical; Visit Provider Nurse Practitioner Family | DX: M05.9 Rheumatoid arthritis with rheumatoid factor, unspecified (principal); M10.9 Gout, unspecified; N28.9 Disorder of kidney and ureter, unspecified | CPT/HCPCS: 99212 ==

== ENCOUNTER 2022-12-24 11:15 | Outpatient (REF) | payer OTHER, SELFPAY ==
[2022-12-24 11:34] LABS: MANUAL DIFF FLAG NO
[2022-12-24 11:52] LABS: Basophils Percent Auto 0.2 % (0-2); Eosinophils Absolute Auto 0.2 X10*3/uL (0.0-0.4); Eosinophils Percent Auto 3.9 % (0-4); Hematocrit 33.7 % (42.0-52.0); Hemoglobin 10.3 g/dl (14.0-18.0); Imm Gran Abs Auto 0.01 X10*3/uL (0.00-0.03); Imm Gran Pct Auto 0.2 % (0.0-0.4); Lymphocytes Absolute Auto 1.5 X10*3/uL (1.2-4.9); Mean Corpuscular HGB Conc 30.6 g/dl (31.0-36.0); Mean Corpuscular Hemoglobin 23.9 pg (27.0-33.0); Mean Corpuscular Volume 78.2 fL (80.0-98.0); Mean Platelet Volume 9.3 fL (9.4-12.4); Monocytes Absolute Auto 0.5 X10*3/uL (0.1-1.2); Monocytes Percent Auto 9.9 % (2-11); Neutrophils Absolute Auto 2.7 x10*3/uL (2.0-8.3); Neutrophils Percent Auto 55.8 % (45-73); Platelet Count 264 X10*3/uL (160-400); Red Blood Count 4.31 X10*6/uL (4.60-5.80); Red Cell Distribution Width 16.1 % (11.0-16.0); White Blood Count 4.8 X10*3/uL (4.8-10.8)
[2022-12-24 12:29] LABS: Erythrocyte Sedimentation Rate 14 MM/HR (0-15)
[2022-12-24 12:53] LABS: Alanine Aminotransferase 24 U/L (0-40); Aspartate Amino Transferase 19 U/L (5-37); C Reactive Protein 0.39 mg/dL (< or = 0.50); Estimated Glomerular Filt Rate 16
== END 2022-12-24 11:16 | disposition home or self-care (01) ==
LOC: HO.LAB 11:15
PROVIDERS: PCP Physician Assistant Medical; Visit Provider Nurse Practitioner Family
DX: M05.9 Rheumatoid arthritis with rheumatoid factor, unspecified (principal); Z79.899 Other long term (current) drug therapy
CPT/HCPCS: 36415; 82565; 84450; 84460; 85025; 85652; 86140

== ENCOUNTER 2022-12-26 10:01 | Outpatient (AMB) | payer OTHER, SELFPAY ==
[2022-12-26 10:19] VITALS: BP 152/86; PULSE 61; TEMP 36.6; O2SAT 97; BMI 46.1
--- NOTE | 2022-12-26 10:19 | MHC.OFFVIS ---
Intake Vital Signs 12/26/22 10:19 Height 5 ft 9 in Weight 311 lb 15.265 oz BMI 46.1 BP 152/86 H Blood Pressure Location Rt brachial Position Sitting Pulse 61 Pulse Source Pulse Oximeter Temp 97.9 F Temp Source Skin Pulse Oximetry (%) 97 Intake Visit Reasons: Rheumatoid arthritis Intake Note: Pt seen today for RA follow up. Reports new medication from copy operator Renan and clinical operations manager at the [facility]. Executive Sales Manager Required: No Accompanied by: Self / Same As Patient Allergies morphine Allergy (Intermediate, Verified 12/26/22 10:22) itchiness ibuprofen Allergy (Unknown, Verified 12/26/22 10:22) kidney disease Medication List - Last Reconciled 12/26/22 by Josh Musa MD adalimumab (Humira(CF) Pen) inject one - 40 mg/0.4 mL pen every 2 weeks subcut allopurinol 150 mg PO DAILY amlodipine 10 mg PO DAILY atorvastatin 80 mg PO DAILY carboxymethylcellulose sodium 0.5% 1 drp ophthalmic (eye) QID PRN cholecalciferol (vitamin D3) 50 mcg PO DAILY colchicine (gout) 0.6 mg PO DAILY PRN diltiazem HCl ER 240 mg PO DAILY epoetin michael-epbx (Retacrit) 20,000 units subcut .Monthly ferrous gluconate 324 mg PO DAILY finasteride 5 mg PO DAILY folic acid 1 mg PO DAILY gabapentin 600 mg PO BEDTIME glipizide 2.5 mg PO BID hydralazine 100 mg PO TID labetalol 300 mg PO TID rivaroxaban 15 mg PO DAILY semaglutide (weight loss) (Mauriciogovy) 1.7 mg subcut QWEEK sildenafil 100 mg PO DAILY PRN sodium zirconium cyclosilicate (Lokelma) 10 grams PO TID 7 days spironolactone 25 mg PO DAILY valsartan 320 mg PO DAILY HPI HPI Comments History of Present Illness Details This is a 62-year-old male with seropositive RA who presents for follow-up. On Humira. He also has history of gout followed by another specialist. Patient states that he is doing well overall except for diffuse PIP pain and stiffness in both hands. This is unchanged. It lasts all day, worse when he makes a fist but it does not affect his daily activities. Denies any swelling. States that about a month ago he had a bug bite and his left ankle and his entire left leg was swollen. He went to [facility], had a duplex scan and was started on antibiotics, antibiotics course was further prolonged by his PCP. He states that his left leg swelling significantly improved now he only has minimal swelling and pain in his left ankle. He has not had any gout attacks in a very long time [facility] Medical History (Updated 12/26/22 @ 10:52 by Josh Musa MD) Afib Diabetes HTN (hypertension) Kidney disease Seropositive rheumatoid arthritis Surgical History History of bilateral knee replacement Hx of shoulder replacement Social History Alcohol intake: current Alcohol intake frequency: holidays/special occasions only Alcohol type: wine Patient Tobacco Use Status: Former Tobacco user Cigarettes Per Day: 5 Years Smoked: 20 Current occupational status: retired Review of Systems [facility] Reports arthralgias, Denies joint swelling and Reports stiffness Skin/Breast Reports erythema and Reports rash Physical Exam Vital Signs: Last Vital Signs Temp 97.9 F 12/26/22 10:19 Pulse 61 12/26/22 10:19 BP 152/86 H 12/26/22 10:19 Pulse Ox 97 12/26/22 10:19 BMI result Body Mass Index 46.1 Const General: cooperative, healthy appearing and comfortable Nutritional Appearance: obese morbidly obese Orientation/consciousness: patient oriented x3 Limitations: no limitations HEENT Head: Yes normocephalic and Yes atraumatic Mouth: moist mucous membranes Resp Effort & Inspection: normal respiratory effort and able to speak in complete sentences Auscultation: clear to auscultation bilaterally Neuro General: patient oriented x3 Extrem Other: Bilateral diffuse PIP tenderness without swelling No active synovitis otherwise Patient can make strong fists bilaterally Normal range of motion of wrists, elbows, shoulders without pain Normal range of motion of both knees without pain Left ankle swelling, warmth and erythema. Minimally tender to palpation Negative MTP squeeze test bilaterally Assessment & Plan Assessment & Plan (1) Seropositive rheumatoid arthritis: Comment: (RF- CCP+++) Dx 11/2018- MRI left hand with bone marrow edema and cystic changes, possible erosion. Humira: January 2019- present effective Code(s): M05.9 - Rheumatoid arthritis with rheumatoid factor, unspecified Plan: This is a 62-year-old male with seropositive RA returns for follow-up. His RA is well controlled on Humira 40 mg every other week. His bilateral PIP pain is likely due to osteoarthritis rather than active inflammatory arthritis. Inflammatory markers are normal. Patient recently had a bug bite his left leg both by significant swelling of his left leg even above his left knee. He was treated with antibiotics with significant improvement, today he has minimal swelling and erythema in his left ankle. He is on Xarelto. Advised patient to postpone Humira by 1 week, then continue 40 mg every other week Labs before next visit in 4 months (2) Kidney disease: Comment: Stage 4 with tendency for hyperkalemia Code(s): N28.9 - Disorder of kidney and ureter, unspecified Plan: Continue follow-up with Nephrology at the [facility]. (3) Gout: Code(s): M10.9 - Gout, unspecified Qualifiers: Chronicity: chronic Gout etiology: due to renal impairment Gout site: multiple sites Presence of tophus: without tophus Qualified Code(s): M1A.39X0 - Chronic gout due to renal impairment, multiple sites, without tophus (tophi) Plan: Currently on allopurinol 150 mg p.o. daily and colchicine 0.6 mg as needed. Per patient report he has a specialist who is managing his gout, this was set up by his clinical operations manager Dr. Fu. Last gout flare along time ago. Will defer gout management to his other providers Plan I spent 26 minutes reviewing patient's chart, evaluating patient, ordering diagnostic workup, counseling patient and documenting in the chart Orders: Orders Complete Blood Count Auto Diff 4 Months M05.9 - Rheumatoid arthritis with rheumatoid factor, unspecified Comprehensive Met. Panel 4 Months M05.9 - Rheumatoid arthritis with rheumatoid factor, unspecified Hepatitis A,B,C Profile 4 Months Z11.59 - Encounter for screening for other viral diseases T Spot TB 4 Months Z11.7 - Encounter for testing for latent tuberculosis infection C Reactive Protein 4 Months M05.9 - Rheumatoid arthritis with rheumatoid factor, unspecified Erythrocyte Sedimentation Rate 4 Months M05.9 - Rheumatoid arthritis with rheumatoid factor, unspecified Coding Level of Care Code Est Pt Level 4 (21847) Diagnoses Seropositive rheumatoid arthritis M05.9 Kidney disease N28.9 Chronic gout due to renal impairment of multiple sites without tophus M1A.39X0 Chronicity: chronic Gout etiology: due to renal impairment Gout site: multiple sites Presence of tophus: without tophus
== END 2022-12-26 10:43 | disposition home or self-care (01) ==
PROVIDERS: PCP Physician Assistant Medical; Visit Provider Student in an Organized Health Care Education/Training Program
DX: M05.79 Rheumatoid arthritis with rheumatoid factor of multiple sites without organ or systems involvement (principal); N28.9 Disorder of kidney and ureter, unspecified; M1A.39X0 Chronic gout due to renal impairment, multiple sites, without tophus (tophi)
CPT/HCPCS: 99214

== ENCOUNTER → 2022-12-26 10:01 | Outpatient (BNVA) | payer OTHER, SELFPAY | PROVIDERS: PCP Physician Assistant Medical; Visit Provider Student in an Organized Health Care Education/Training Program | DX: M05.9 Rheumatoid arthritis with rheumatoid factor, unspecified (principal); M1A.39X0 Chronic gout due to renal impairment, multiple sites, without tophus (tophi); N28.9 Disorder of kidney and ureter, unspecified; N18.4 Chronic kidney disease, stage 4 (severe); E87.5 Hyperkalemia | CPT/HCPCS: 99212 ==

== ENCOUNTER 2023-04-17 11:08 | Outpatient (REF) | payer OTHER, SELFPAY ==
[2023-04-17 11:27] LABS: MANUAL DIFF FLAG NO
[2023-04-17 11:37] LABS: Basophils Percent Auto 0.6 % (0-2); Eosinophils Absolute Auto 0.2 X10*3/uL (0.0-0.4); Hematocrit 36.8 % (42.0-52.0); Hemoglobin 11.2 g/dl (14.0-18.0); Imm Gran Abs Auto 0.01 X10*3/uL (0.00-0.03); Imm Gran Pct Auto 0.3 % (0.0-0.4); Lymphocytes Absolute Auto 1.3 X10*3/uL (1.2-4.9); Lymphocytes Percent Auto 35.1 % (20-40); Mean Corpuscular HGB Conc 30.4 g/dl (31.0-36.0); Mean Corpuscular Volume 75.4 fL (80.0-98.0); Mean Platelet Volume 9.4 fL (9.4-12.4); Monocytes Absolute Auto 0.4 X10*3/uL (0.1-1.2); Monocytes Percent Auto 10.6 % (2-11); Neutrophils Absolute Auto 1.7 x10*3/uL (2.0-8.3); Neutrophils Percent Auto 48.4 % (45-73); Platelet Count 241 X10*3/uL (160-400); Red Blood Count 4.88 X10*6/uL (4.60-5.80); Red Cell Distribution Width 16.3 % (11.0-16.0); White Blood Count 3.6 X10*3/uL (4.8-10.8)
[2023-04-17 12:12] LABS: Erythrocyte Sedimentation Rate 17 MM/HR (0-15)
[2023-04-17 12:32] LABS: HBsAGNum1 0.36 S/CO (0.00-0.99); Hepatitis A Antibody IgM 0.22 Index (0-0.79); Hepatitis B Surface Antigen Negative (Negative); ~Hepatitis A Antibody IgM Nonreactive (Nonreactive)
[2023-04-17 12:38] LABS: Alanine Aminotransferase 15 U/L (0-40); Albumin Level 3.6 g/dL (3.5-5.0); Alkaline Phosphatase 108 U/L (39-117); Anion Gap 11 (12-20); Aspartate Amino Transferase 13 U/L (5-37); Bilirubin Total 0.3 mg/dL (0.0-1.0); Blood Urea Nitrogen 28 mg/dL (9-16); C Reactive Protein 0.18 mg/dL (< or = 0.50); Calcium 8.7 mg/dL (8.4-10.2); Carbon Dioxide 28 mmol/L (22-29); Chloride 106 mmol/L (96-108); Estimated Glomerular Filt Rate 17; Glucose Random 89 mg/dL (60-115); Potassium 3.8 mmol/L (3.3-5.1); Sodium 141 mmol/L (135-145); Total Protein 6.8 g/dL (6.5-8.0)
[2023-04-17 13:04] LABS: HBc Num1 0.15 S/CO (0.00-0.79); Hepatitis B Core Antibody Nonreactive (Nonreactive); ~HepC Num1 0.15 S/CO (0.00-0.79); ~Hepatitis B Surface Antibody NONREACTIVE (Nonreactive); ~Hepatitis C Antibody Nonreactive (Nonreactive)
[2023-04-19 20:14] LABS: TS Negative Control Passed; TS Panel A 3; TS Panel B 0; TS Positive Control Passed; TSpotTB Negative (Negative)
== END 2023-04-17 11:09 | disposition home or self-care (01) ==
LOC: HO.LAB 11:08
PROVIDERS: PCP Physician Assistant Medical; Visit Provider Student in an Organized Health Care Education/Training Program
DX: M05.9 Rheumatoid arthritis with rheumatoid factor, unspecified (principal); Z11.7 Encounter for testing for latent tuberculosis infection; Z11.59 Encounter for screening for other viral diseases; Z72.89 Other problems related to lifestyle
CPT/HCPCS: 36415; 80053; 85025; 85652; 86140; 86481; 86704; 86706; 86709; 86803; 87340

== ENCOUNTER 2023-04-28 09:44 | Outpatient (AMB) | payer OTHER, SELFPAY ==
[2023-04-28 09:49] VITALS: BP 142/76; PULSE 65; TEMP 36.2; O2SAT 97; BMI 43.4
--- NOTE | 2023-04-28 09:49 | MHC.OFFVIS ---
Intake Vital Signs 04/28/23 09:49 Height 5 ft 9 in Weight 293 lb 14.019 oz BMI 43.4 BP 142/76 H Blood Pressure Location Rt brachial Position Sitting Pulse 65 Pulse Source Pulse Oximeter Temp 97.2 F Temp Source Skin Pulse Oximetry (%) 97 Oxygen Delivery Method Room Air Intake Visit Reasons: RA Intake Note: Pt last seen 12/26/22 presents today for follow up and test results. 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 Accompanied by: Self / Same As Patient Allergies morphine Allergy (Intermediate, Verified 04/28/23 09:53) itchiness ibuprofen Allergy (Unknown, Verified 04/28/23 09:53) kidney disease Medication List - Last Reconciled 04/28/23 by Josh Musa MD adalimumab (Humira(CF) Pen) inject one - 40 mg/0.4 mL pen every 2 weeks subcut allopurinol 150 mg PO DAILY amlodipine 10 mg PO DAILY atorvastatin 80 mg PO DAILY carboxymethylcellulose sodium 0.5% 1 drp ophthalmic (eye) QID PRN cholecalciferol (vitamin D3) 50 mcg PO DAILY colchicine 0.6 mg PO DAILY PRN diltiazem HCl ER 240 mg PO DAILY epoetin michael-epbx (Retacrit) 20,000 units subcut .Monthly ferrous gluconate 324 mg PO DAILY finasteride 5 mg PO DAILY folic acid 1 mg PO DAILY gabapentin 600 mg PO BEDTIME glipizide 2.5 mg PO BID hydralazine 100 mg PO TID labetalol 300 mg PO TID rivaroxaban 15 mg PO DAILY semaglutide (weight loss) (Wegovy) 1.7 mg subcut QWEEK sildenafil 100 mg PO DAILY PRN sodium zirconium cyclosilicate (Lokelma) 10 grams PO TID 7 days spironolactone 25 mg PO DAILY valsartan 320 mg PO DAILY HPI HPI Comments History of Present Illness Details This is a 62-year-old male with seropositive RA who presents for follow-up. Last visit patient had just completed a course of antibiotics after a dog bite. I had asked him to hold Humira by 1 week. Apparently patient did not fully understand and he has been holding the Humira since then, he states that he has been having some stiffness across his knuckles bilaterally, no real pain. Doing well otherwise Patient states that he is doing well overall except for diffuse PIP pain and stiffness in both hands. This is unchanged. It lasts all day, worse when he makes a fist but it does not affect his daily activities. Denies any swelling. States that about a month ago he had a bug bite and his left ankle and his entire left leg was swollen. He went to [facility], had a duplex scan and was started on antibiotics, antibiotics course was further prolonged by his PCP. He states that his left leg swelling significantly improved now he only has minimal swelling and pain in his left ankle. He has not had any gout attacks in a very long time [facility] Medical History Afib Diabetes HTN (hypertension) Kidney disease Seropositive rheumatoid arthritis Surgical History History of bilateral knee replacement Hx of shoulder replacement Social History Alcohol intake: current Alcohol intake frequency: holidays/special occasions only Alcohol type: wine Patient Tobacco Use Status: Former Tobacco user Cigarettes Per Day: 5 Years Smoked: 20 Current occupational status: retired Review of [employer] [facility] [place] Reports stiffness Physical Exam Vital Signs: Last Vital Signs Temp 97.2 F 04/28/23 09:49 Pulse 65 04/28/23 09:49 BP 142/76 H 04/28/23 09:49 Pulse Ox 97 04/28/23 09:49 Oxygen Delivery Method Room Air 04/28/23 09:49 BMI result Body Mass Index 43.4 Const General: cooperative, healthy appearing and comfortable Nutritional Appearance: obese morbidly obese Orientation/consciousness: patient oriented x3 Limitations: no limitations HEENT Head: Yes normocephalic and Yes atraumatic Mouth: moist mucous membranes Resp Effort & Inspection: normal respiratory effort and able to speak in complete sentences Auscultation: clear to auscultation bilaterally Neuro General: patient oriented x3 Extrem Other: Bilateral MCP puffiness but no tenderness and negative MCP squeeze test No active synovitis otherwise Patient can make strong fists bilaterally Normal range of motion of wrists, elbows, shoulders without pain Normal range of motion of both knees without pain Negative MTP squeeze test bilaterally Assessment & Plan Assessment & Plan (1) Seropositive rheumatoid arthritis: Comment: (RF- CCP+++) Dx 11/2018- MRI left hand with bone marrow edema and cystic changes, possible erosion. Humira: January 2019- present effective Code(s): M05.9 - Rheumatoid arthritis with rheumatoid factor, unspecified Plan: This is a 62-year-old male with seropositive RA returns for follow-up. Last visit patient had just completed a course of antibiotics after a dog bite.? I had asked him to hold Humira by 1 week.? Apparently patient did not fully understand and he has been holding the Humira since then, he states that he has been having some stiffness across his MCPs bilaterally. I asked patient to restart Humira 40 mg every other week. Recent blood work unremarkable with normal inflammatory markers Follow-up in 4 months (2) Kidney disease: Comment: Stage 4 with tendency for hyperkalemia Code(s): N28.9 - Disorder of kidney and ureter, unspecified Plan: Continue follow-up with Nephrology at the [facility]. (3) Gout: Code(s): M10.9 - Gout, unspecified Qualifiers: Gout site: multiple sites Gout etiology: due to renal impairment Chronicity: chronic Presence of tophus: without tophus Qualified Code(s): M1A.39X0 - Chronic gout due to renal impairment, multiple sites, without tophus (tophi) Plan: Currently on allopurinol 150 mg p.o. daily and colchicine 0.6 mg as needed. Per patient report he has a specialist who is managing his gout, this was set up by his safe expert Dr. Fu. Last gout flare along time ago. Will defer gout management to his other providers (4) Immunization counseling: Code(s): Z71.85 - Encounter for immunization safety counseling Plan: Patient received a vaccine for the season and new COVID booster. 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
== END 2023-04-28 10:18 | disposition home or self-care (01) ==
LOC: HO.RHE 09:44
PROVIDERS: PCP Physician Assistant Medical; Visit Provider Student in an Organized Health Care Education/Training Program
DX: M05.79 Rheumatoid arthritis with rheumatoid factor of multiple sites without organ or systems involvement (principal); N28.9 Disorder of kidney and ureter, unspecified; M1A.39X0 Chronic gout due to renal impairment, multiple sites, without tophus (tophi); Z71.85 Encounter for immunization safety counseling
CPT/HCPCS: 99214

== ENCOUNTER → 2023-04-28 09:44 | Outpatient (BNVA) | payer OTHER, SELFPAY | PROVIDERS: PCP Physician Assistant Medical; Visit Provider Student in an Organized Health Care Education/Training Program | DX: M05.9 Rheumatoid arthritis with rheumatoid factor, unspecified (principal); N28.9 Disorder of kidney and ureter, unspecified; M1A.39X0 Chronic gout due to renal impairment, multiple sites, without tophus (tophi); Z71.85 Encounter for immunization safety counseling | CPT/HCPCS: 99212 ==

== ENCOUNTER 2023-11-07 12:07 | Outpatient (REF) | payer OTHER, SELFPAY ==
[2023-11-07 12:23] LABS: MANUAL DIFF FLAG NO
[2023-11-07 12:45] LABS: Basophils Percent Auto 0.3 % (0-2); Eosinophils Absolute Auto 0.1 X10*3/uL (0.0-0.4); Eosinophils Percent Auto 4.1 % (0-4); Hematocrit 29.8 % (42.0-52.0); Hemoglobin 9.5 g/dl (14.0-18.0); Imm Gran Abs Auto 0.01 X10*3/uL (0.00-0.03); Imm Gran Pct Auto 0.3 % (0.0-0.4); Lymphocytes Absolute Auto 0.8 X10*3/uL (1.2-4.9); Lymphocytes Percent Auto 24.3 % (20-40); Mean Corpuscular HGB Conc 31.9 g/dl (31.0-36.0); Mean Corpuscular Volume 75.3 fL (80.0-98.0); Mean Platelet Volume 9.7 fL (9.4-12.4); Monocytes Absolute Auto 0.4 X10*3/uL (0.1-1.2); Monocytes Percent Auto 10.3 % (2-11); Neutrophils Absolute Auto 2.1 x10*3/uL (2.0-8.3); Neutrophils Percent Auto 60.7 % (45-73); Platelet Count 236 X10*3/uL (160-400); Red Blood Count 3.96 X10*6/uL (4.60-5.80); Red Cell Distribution Width 15.9 % (11.0-16.0); White Blood Count 3.4 X10*3/uL (4.8-10.8)
[2023-11-07 13:23] LABS: Erythrocyte Sedimentation Rate 29 MM/HR (0-15)
[2023-11-07 21:57] LABS: Alanine Aminotransferase 10 U/L (0-40); Albumin Level 3.7 g/dL (3.5-5.0); Alkaline Phosphatase 96 U/L (39-117); Anion Gap 17 (12-20); Aspartate Amino Transferase 11 U/L (5-37); Bilirubin Total 0.4 mg/dL (0.0-1.0); Blood Urea Nitrogen 49 mg/dL (9-16); C Reactive Protein 0.44 mg/dL (< or = 0.50); Calcium 8.7 mg/dL (8.4-10.2); Carbon Dioxide 22 mmol/L (22-29); Chloride 105 mmol/L (96-108); Estimated Glomerular Filt Rate 11; Glucose Random 102 mg/dL (60-115); Potassium 3.5 mmol/L (3.3-5.1); Sodium 140 mmol/L (135-145); Total Protein 6.7 g/dL (6.5-8.0)
== END 2023-11-07 12:08 | disposition home or self-care (01) ==
LOC: HO.LAB 12:07
PROVIDERS: PCP Physician Assistant Medical; Visit Provider Student in an Organized Health Care Education/Training Program
DX: M05.9 Rheumatoid arthritis with rheumatoid factor, unspecified (principal)
CPT/HCPCS: 36415; 80053; 85025; 85652; 86140

== ENCOUNTER 2023-11-17 14:23 | Outpatient (AMB) | payer OTHER, SELFPAY ==
--- NOTE | 2023-11-17 14:24 | MHC.OFFVIS ---
Vital Signs 11/17/23 14:27 Height 5 ft 9 in Weight 284 lb 6.341 oz BMI 42.0 BP 138/76 Blood Pressure Location Lt brachial Position Sitting Pulse 67 Pulse Source Pulse Oximeter Pulse Oximetry (%) 97 Oxygen Delivery Method Room Air Intake Visit Reasons: RA/confirmed Intake Note: Patient last seen 04/28/23 presents today for follow up and test results Allergies morphine Allergy (Intermediate, Verified 04/28/23 09:53) itchiness ibuprofen Allergy (Unknown, Verified 04/28/23 09:53) kidney disease Medication List - Last Reconciled 11/17/23 by Josh Musa MD adalimumab (Humira(CF) Pen) inject one - 40 mg/0.4 mL pen every 2 weeks subcut allopurinol 150 mg PO DAILY amlodipine 10 mg PO DAILY atorvastatin 80 mg PO DAILY carboxymethylcellulose sodium 0.5% 1 drp ophthalmic (eye) QID PRN cholecalciferol (vitamin D3) 50 mcg PO DAILY diltiazem HCl ER 300 mg PO DAILY epoetin michael-epbx (Retacrit) 20,000 units subcut .Monthly ferrous gluconate 324 mg PO DAILY finasteride 5 mg PO DAILY folic acid 1 mg PO DAILY gabapentin 600 mg PO BEDTIME glipizide 2.5 mg PO BID hydralazine 100 mg PO TID labetalol 300 mg PO TID prednisolone acetate (PF) 1% 1 drp ophthalmic (eye) BID rivaroxaban 15 mg PO DAILY semaglutide (weight loss) (Wegovy) 1.7 mg subcut QWEEK sildenafil 100 mg PO DAILY PRN sodium zirconium cyclosilicate (Lokelma) 10 grams PO TID 7 days spironolactone 25 mg PO DAILY valsartan 320 mg PO DAILY HPI Comments Details: This is a 63-year-old male with seropositive RA who presents for follow-up. He remains on Humira 40 mg every other week. States that his RA is doing well overall except for mild achiness and stiffness of his knuckles. States that he had a couple of Stickler infections that were treated with antibiotics. He was evaluated by a urologist. He has not had any gout attacks in a very long time [facility] Medical History Afib Diabetes HTN (hypertension) Kidney disease Seropositive rheumatoid arthritis Surgical History History of bilateral knee replacement Hx of shoulder replacement Social History Alcohol intake: current Alcohol intake frequency: holidays/special occasions only Alcohol type: wine Patient Tobacco Use Status: Former Tobacco user Cigarettes Per Day: 5 Years Smoked: 20 Current occupational status: retired Review of [employer] Reports stiffness Physical Exam Vital Signs: Last Vital Signs Pulse 67 11/17/23 14:27 BP 138/76 11/17/23 14:27 Pulse Ox 97 11/17/23 14:27 Oxygen Delivery Method Room Air 11/17/23 14:27 BMI result Body Mass Index 42.0 Const General: cooperative, healthy appearing and comfortable Nutritional Appearance: obese morbidly obese Orientation/consciousness: patient oriented x3 Limitations: no limitations HEENT Head: Yes normocephalic and Yes atraumatic Mouth: moist mucous membranes Resp Effort & Inspection: normal respiratory effort and able to speak in complete sentences Auscultation: clear to auscultation bilaterally Neuro General: patient oriented x3 Extrem Other: Bilateral MCP puffiness but no tenderness and negative MCP squeeze test No active synovitis otherwise Patient can make strong fists bilaterally Normal range of motion of wrists, elbows, shoulders without pain Normal range of motion of both knees without pain Negative MTP squeeze test bilaterally Assessment & Plan Assessment & Plan (1) Seropositive rheumatoid arthritis: Comment: (RF- CCP+++) Dx 11/2018- MRI left hand with bone marrow edema and cystic changes, possible erosion. Humira: January 2019- present effective Code(s): M05.9 - Rheumatoid arthritis with rheumatoid factor, unspecified Category: Medical Plan: This is a 63-year-old male with seropositive RA returns for follow-up. Doing very well on Humira 40 mg every other week. Continue with 40 mg every other week. Patient states that the [facility] is switching his Humira to a bio similar. He does not know the name. He will find out and call the office and I will send the refill to the [facility] pharmacy Labs before next visit in 6 months (2) Kidney disease: Code(s): N28.9 - Disorder of kidney and ureter, unspecified Category: Medical Plan: His CKD is progressing, he is now stage 5. Continue follow-up with Nephrology at the [facility]. (3) Gout: Code(s): M10.9 - Gout, unspecified Category: Medical Qualifiers: Gout site: multiple sites Gout etiology: due to renal impairment Chronicity: chronic Presence of tophus: without tophus Qualified Code(s): M1A.39X0 - Chronic gout due to renal impairment, multiple sites, without tophus (tophi) Plan: Currently on allopurinol 150 mg p.o. daily. Has not used colchicine in years Per patient report he has a specialist who is managing his gout, this was set up by his youth care specialist Dr. Fu. Will defer gout management to his other providers (4) High risk medication use: Code(s): Z79.899 - Other intermodal customer service (current) drug therapy Category: Medical Plan: Discussed risk of infection associated with TNF inhibitors. Patient states that he had a couple of particular infections over the past few months treated with antibiotics. Advised patient to skip Humira and restart once infection resolves Plan I spent 26 minutes reviewing patient's chart, evaluating patient, ordering diagnostic workup counseling patient and documenting in the chart Orders: Orders Complete Blood Count Auto Diff 6 Months M05.9 - Rheumatoid arthritis with rheumatoid factor, unspecified Comprehensive Met. Panel 6 Months M05.9 - Rheumatoid arthritis with rheumatoid factor, unspecified Erythrocyte Sedimentation Rate 6 Months M05.9 - Rheumatoid arthritis with rheumatoid factor, unspecified C Reactive Protein 6 Months M05.9 - Rheumatoid arthritis with rheumatoid factor, unspecified Coding Level of Care Code Est Pt Level 4 (85704) Diagnoses Seropositive rheumatoid arthritis M05.9 Kidney disease N28.9 Chronic gout due to renal impairment of multiple sites without tophus M1A.39X0 Gout site: multiple sites Gout etiology: due to renal impairment Chronicity: chronic Presence of tophus: without tophus High risk medication use Z79.899
[2023-11-17 14:27] VITALS: BP 138/76; PULSE 67; O2SAT 97; BMI 42.0
== END 2023-11-17 14:55 | disposition home or self-care (01) ==
PROVIDERS: PCP Physician Assistant Medical; Visit Provider Student in an Organized Health Care Education/Training Program
DX: M05.79 Rheumatoid arthritis with rheumatoid factor of multiple sites without organ or systems involvement (principal); N28.9 Disorder of kidney and ureter, unspecified; M1A.39X0 Chronic gout due to renal impairment, multiple sites, without tophus (tophi); Z79.899 Other long term (current) drug therapy
CPT/HCPCS: 99214

== ENCOUNTER → 2023-11-17 14:23 | Outpatient (BNVA) | payer OTHER, SELFPAY | PROVIDERS: PCP Physician Assistant Medical; Visit Provider Student in an Organized Health Care Education/Training Program | DX: M05.9 Rheumatoid arthritis with rheumatoid factor, unspecified (principal); N28.9 Disorder of kidney and ureter, unspecified; M1A.39X0 Chronic gout due to renal impairment, multiple sites, without tophus (tophi); Z79.899 Other long term (current) drug therapy | CPT/HCPCS: 99212 ==

== ENCOUNTER 2024-12-01 14:40 | Outpatient (AMB) | payer OTHER, SELFPAY ==
--- NOTE | 2024-12-01 14:48 | A.OFFVIS_ITS ---
Vital Signs 12/01/24 15:04 Height 5 ft 9 in Weight 282 lb 3.067 oz BMI 41.7 BP 152/80 H Blood Pressure Location Lt brachial Position Sitting Pulse 70 Pulse Source Pulse Oximeter Pulse Oximetry (%) 97 Oxygen Delivery Method Room Air Intake Visit Reasons: RA Intake Note: Patient presents for RA follow up. Allergies morphine Allergy (Intermediate, Verified 12/01/24 15:00) itchiness ibuprofen Allergy (Unknown, Verified 12/01/24 15:00) kidney disease Medication List - Last Reconciled 12/01/24 by Shereen Perry MD adalimumab (Humira(CF) Pen) inject one - 40 mg/0.4 mL pen every 2 weeks subcut allopurinol 150 mg PO DAILY amlodipine 10 mg PO DAILY atorvastatin 80 mg PO DAILY carboxymethylcellulose sodium 0.5% 1 drp ophthalmic (eye) QID PRN cholecalciferol (vitamin D3) 50 mcg PO DAILY diltiazem HCl ER 300 mg PO DAILY epoetin michael-epbx (Retacrit) 20,000 units subcut .Monthly ferrous gluconate 324 mg PO DAILY finasteride 5 mg PO DAILY folic acid 1 mg PO DAILY gabapentin 600 mg PO BEDTIME glipizide 2.5 mg PO BID hydralazine 100 mg PO TID labetalol 300 mg PO TID prednisolone acetate (PF) 1% 1 drp ophthalmic (eye) BID rivaroxaban 15 mg PO DAILY sildenafil 100 mg PO DAILY PRN sodium zirconium cyclosilicate (Lokelma) 10 grams PO TID 7 days HPI Comments Details: Patient is a 64 y.o. 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 Musa - On Humira 40mg SC every 2 weeks and allopurinol 150mg PO daily - RA doing well except for mild achyness over his knuckles - No gout flares, gout managed by other provider - Exam without active synovitis Today - On Humira 40mg SC every 2 weeks and allopurinol 150mg PO daily - No gout flares[facility] - RA well controlled - States that his hands lock up sometimes Rheumatologic History: Serpositive RA (RF- CCP+++) Dx 11/2018- MRI left hand with bone marrow edema and cystic changes, possible erosion. Humira: January 2019- present effective Current Rheumatology Medication(s): Allopurinol 150mg (managed by another provider) Humira 40mg SC every 2 weeks PFSH Medical History Afib Diabetes HTN (hypertension) Kidney disease Seropositive rheumatoid arthritis Surgical History History of bilateral knee replacement Hx of shoulder replacement Social History Alcohol intake: current Alcohol intake frequency: holidays/special occasions only Alcohol type: wine Patient Tobacco Use Status: Former Tobacco user Cigarettes Per Day: 5 Years Smoked: 20 Current occupational status: retired Review of Systems Const Details: Review of Systems Constitutional: Denies fever, chills, weight loss ENT: Denies vision changes, eye pain or eye redness, dental caries, dry mouth GI: Denies nausea, vomiting, diarrhea, abdominal pain, change in BM Pulm: Denies LÓPEZ, hemoptysis, wheezing Cards: Denies chest pain, palpitations Skin: Denies Raynaud's, rash, nail changes, photosensitivity, PAINTER TUMBLING BARREL: Denies headaches, weakness, paresthesias, recurrent falls MSK: as per HPI All other systems reviewed and are unremarkable except noted above Physical Exam Exam Exam: Vital signs reviewed Physical Examination CONSTITUITIONAL Patient alert and cooperative. Well appearing and in no apparent painful distress HEENT Conjunctiva and sclera clear. No lymphadenopathy. MSK Hands * Right Hand: Able to make a fist. No swelling or tenderness to palpation of these joints. * Left Hand: Able to make a fist. No swelling or tenderness to palpation of these joints. * Herbedens nodes noted bilaterally * Thickening of the A1 lucina of the 2nd and 3rd digit bilaterally Wrists * Right Wrist: Full ROM. 70 degrees of wrist flexion, 80 degrees of wrist extension. No swelling or TTP * Left Wrist: Full ROM. 70 degrees of wrist flexion, 80 degrees of wrist extension. No swelling or TTP Elbows * Right Elbow: Full ROM. No swelling or TTP. No TTP of the medial and lateral epicondyles * Left Elbow: Full ROM. No swelling or TTP. No TTP of the medial and lateral epicondyles Shoulders * Right shoulder: Full ROM. No swelling noted. No TTP of the AC joint, subacromial bursa or posterior shoulder * Left shoulder: Full ROM. No swelling noted. No TTP of the AC joint, subacromial bursa or posterior shoulder Knees * Right knee: Full ROM. No swelling noted. No TTP of the knee joint lie or pes anserine bursa * Left knee: Full ROM. No swelling noted. No TTP of the knee joint lie or pes anserine bursa. * Surgical scar anteriorly over the knees Ankles * Right ankle: Good ankle dorsiflexion and plantar flexion. No swelling. No TTP of the ankle joint * Left ankle: Good ankle dorsiflexion and plantar flexion. No swelling. No TTP of the ankle joint * Pitting edema 2+ up to the tibial tuberosity Feet * Right foot: Negative squeeze test * Left foot: Negative squeeze test Tender points? * No tenderness to palpation of the bilateral trapezius, supraspinatus, anterior costochondral junctions, bilateral suboccipital muscle insertions SKIN No rashes Results Reviewed Results Reviewed: Laboratory Tests 11/07/23 12:22 WBC 3.4 L RBC 3.96 L Hgb 9.5 L Hct 29.8 L Plt Count 236 ESR 29 H Sodium 140 Potassium 3.5 Chloride 105 Carbon Dioxide 22 BUN 49 H Creatinine 5.47 H* AST 11 ALT 10 C-Reactive Protein 0.44 Laboratory Tests 11/23/18 10:10 Rheumatoid Factor < 15.0 Cycl Citrul Peptide IgG >250 H Laboratory Tests 04/17/23 11:26 Hepatitis A IgM Ab Nonreactive Hep Bs Antigen Negative Hep Bs Antibody NONREACTIVE Hep B Core Total Ab Nonreactive Hepatitis C Ab (EIA) Nonreactive TB Test (T-Spot) Com Negative Assessment & Plan Assessment & Plan (1) Seropositive rheumatoid arthritis: Comment: (RF- CCP+++) Dx 11/2018- MRI left hand with bone marrow edema and cystic changes, possible erosion. Humira: January 2019- present effective Code(s): M05.9 - Rheumatoid arthritis with rheumatoid factor, unspecified Category: Medical Plan: #Seropositive RA Patient is a 64 year old male with seropositive RA here today for follow up Doing well today without any synovitis Plan - Continue Humira 40mg SC every 2 weeks - Labs today: CBC, CMP, ESR, CRP, Hepatitis panel and T spot, uric acid - RTC 6 months - Labs before visit: CBC, CMP, ESR, CRP (2) Gout: Code(s): M10.9 - Gout, unspecified Category: Medical Qualifiers: Gout site: multiple sites Gout etiology: due to renal impairment Chronicity: chronic Presence of tophus: without tophus Qualified Code(s): M1A.39X0 - Chronic gout due to renal impairment, multiple sites, without tophus (tophi) Plan: #Gout No gout flares for several years Currently managed by [facility] doctors (3) Encounter for monitoring of adalimumab therapy: Code(s): Z51.81 - Encounter for therapeutic drug level monitoring; Z79.620 - care home (current) use of immunosuppressive biologic Plan: #Long-term Use of TNF Inhibitors: Discussed with the patient the benefits and risks of TNF inhibitors for the management of the rheumatic condition Benefits include reduce pain, maintenance of remission and reduction of flares as well as progression of the disease Risks include injection sites/infusion reactions, serious infections (such as bacterial infections, opportunistic infections), malignancy, delaminating syndromes, autoimmune phenomena, CHF exacerbations, palmar plantar psoriasis and cytopenias Recommended rotating injection sites, and holding medication during and for up to 1 week after resolution of a febrile illness or open skin wound Plan I spent 30 minutes reviewing the record and labs, taking a history, examining the patient, discussing the treatment plan, ordering diagnostic work up and documenting in the medical record Orders: Orders Hepatitis B,C Profile Today Z79.899 - Other vermin exterminator (current) drug therapy T Spot TB Today M05.9 - Rheumatoid arthritis with rheumatoid factor, unspecified Comprehensive Met. Panel 6 Months Z79.899 - Other vermin exterminator (current) drug therapy Complete Blood Count Auto Diff 6 Months Z79.89 - Other [facility] (current) drug therapy C Reactive Protein 6 Months Z79.89 - Other vermin exterminator (current) drug therapy Erythrocyte Sedimentation Rate 6 Months Z79.899 - Other vermin exterminator (current) d rug therapy Medications: Changed From adalimumab (Humira(CF) Pen) inject one - 40 mg/0.4 mL pen every 2 weeks subcut 2 ea 5RF M05.9 - Rheumatoid arthritis with rheumatoid factor, unspecified To adalimumab (Humira(CF) Pen) 40 mg subcutaneously; 2 ea 5RF M05.9 - Rheumatoid arthritis with rheumatoid factor, unspecified Coding Level of Care Code Est Pt Level 4 (19716) Complex EM visit Add On G2211 Diagnoses Seropositive rheumatoid arthritis M05.9 Chronic gout due to renal impairment of multiple sites without tophus M1A.39X0 Gout site: multiple sites Gout etiology: due to renal impairment Chronicity: chronic Presence of tophus: without tophus Encounter for monitoring of adalimumab therapy Z51.81; Z79.620
--- OUTSIDE RECORDS SUMMARY | 2024-12-01 14:48 | XMS_ITS | Clinical Summary ---
Author Organization [facility] Address [address] [address] Phone Care Team Providers Care Public Relations Director Name Role Phone Celsa Melendez Primary Care Provider [phone] Allergies Active Allergy Reactions Criticality Noted Date Comments Ibuprofen Other (see comments) High 11/04/2018 Effects kidney function Morphine Hives,Itching High 11/04/2018 Medications gabapentin (NEURONTIN) 300 MG capsule Take 300 mg by mouth 03/05/2019 Active finasteride (PROSCAR) 5 MG tablet Take 5 mg by mouth 1 (one) time each day 03/05/2019 Active ferrous gluconate (FERGON) 324 (38 Fe) MG tablet Take 324 mg by mouth 03/05/2019 Active cholecalciferol (VITAMIN D-3) 25 MCG (1000 UT) tablet Take 1,000 Units by mouth Active Adalimumab 40 MG/0.4ML Pen-injector Kit Inject 40 mg under the skin Active Carboxymethylcel lulose Sod PF 0.5 % solution 1 drop Activ e Folic Acid 0.8 MG capsule Take 5 mg by mouth 03/05/2019 Active HYDRALAZINE HCL PO Take 100 mg by mouth in the morning and 100 mg at noon and 100 mg in the evening. Active amLODIPine (NORVASC) 10 MG tablet Take 10 mg by mouth 1 (one) time each day 03/05/2019 Active sildenafil (VIAGRA) 100 MG tablet Take 100 mg by mouth 03/05/2019 Active sodium bicarbonate 325 MG tablet Take 650 mg by mouth 03/05/2019 Active Semaglutide-Weig ht Management (WEGOVY SC) Inject under the skin Active apixaban (ELIQUIS) 5 MG tablet Take 5 mg by mouth in the morning and 5 mg in the evening. 07/09/2024 Active Tirzepatide-Weig ht Management 2.5 MG/0.5ML solution auto-injector Inject under the skin 09/24/2024 Active Active Problems Problem Noted Date Diagnosed Date Acute nontraumatic kidney injury 06/11/2024 Stage 5 chronic kidney disease 06/10/2024 Congestive heart failure 06/10/2024 Overview (06/10/2024): Nov 29, 2016 Entered By: CELSA MELENDEZ Comment: See Problem Atrial Fibrillation Nov 29, 2016 Entered By: CELSA MELENDEZ Comment: FH: CAD, CABG's Prevelant Jan 01, 2017 Entered By: CELSA MELENDEZ Comment: See Cardio Note [facility] Dated JAN 05 Feb 12, 2017 Entered By: CELSA MELENDEZ Comment: See Report, CT ABD/Pelvis, FEB 04 [place]; No G-U Pathology; Feb 12, 2017 Entered By: CELSA MELENDEZ Comment: +CT -- Evidence Supporting Dx of CHF Feb 27, 2017 Entered By: CELSA MELENDEZ Comment: See Cardio Note [facility] MAR 07: Has Shunting; pending Procedure Apr 24, 2017 Entered By: CELSA MELENDEZ Comment: ANDREW, TIFF[facility] APR 06: +ASD/PFO Jul 29, 2017 Entered By: CELSA MELENDEZ Comment: Decision not to Surg Close This Jul 29, 2017 Entered By: CELSA MELENDEZ Comment: Se Cardio Note, [facility], Dated JUL 06 Coronary arteriosclerosis 06/10/2024 Overview (06/10/2024): Aug 18, 2019 Entered By: CELSA MELENDEZ Comment: Likely Some Degree of CAD in Presence A FIB and CHF Essential (primary) hypertension 06/10/2024 Sleep apnea 06/10/2024 Overview (06/10/2024): Apr 27, 2014 Entered By: CELSA MELENDEZ Comment: saw Sleep Clinic [facility] : Sleep Study Planned Diabetes mellitus with neuro logical manifestations, type II or unspecified type, not stated as uncontrolled 06/10/2024 Atrial fibrillation 03/23/2024 Myocardial infarction 03/23/2024 Severe obesity 02/17/2024 Anemia 01/13/2023 Type 2 diabetes mellitus 02/12/2019 Chronic iron deficiency anemia secondary to bloo d loss 11/04/2018 Restless legs 04/21/2015 Overview (06/10/2024): September 12, 2016 Entered By: HERIBERTO ROACH Comment: followed by sleep [facility] Encounters Date Type Department Care Team Description 11/03/2024 3:00 PM EDT Office Visit [facility] [address] [place] [address] [place] [address] Gil Mckeon MD Stage 5 chronic kidney disease (HCC) (Primary Dx) 11/02/2024 Telephone [facility] [address] [place] [address] [place] [address] Sirisha Davis 10/12/2024 Telephone [facility] [address] [place] [address] [place] [address] Kristi Denton 10/11/2024 10:00 AM EDT Procedure visit [facility] [address] [place] [address] Doc Khan MD 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, implants and grafts, subsequent encounter [T85.858D] (Primary Dx); Stage 5 chronic kidney disease (HCC) [N18.5] 10/08/2024 Telephone [facility] [address] [place] [address] [place] [address] Lesa Hoffman 09/24/2024 Telephone [facility] [address] [place] [address] Yumiko Horton 09/23/2024 3:00 PM EDT Procedure visit [facility] [address] [place] [address] [place] [address] Gil Mckeon MD End stage renal disease (HCC) (Primary Dx); Other mechanical complication of surgically created arteriovenous fistula, subsequent encounter 09/21/2024 Telephone [facility] [address] [place] [address] Jaylyn Desir 09/10/2024 Telephone [facility] [address] [place] [address] Yumiko Horton 09/09/2024 10:00 AM EDT Procedure visit [facility] [address] [place] [address] Doc Khan MD Stage 5 chronic kidney disease (HCC) (Primary Dx) 09/07/2024 Telephone [facility] [address] [place] [address] Seda Quinn 09/03/2024 Telephone [facility] [address] [place] [address] Salma Perez 09/01/2024 Telephone [facility] [address] [place] [address] Seda Quinn from Last 3 Months Social History Tobacco Use Types Packs/Day Years Used Date Smoking Tobacco: Former Cigarettes Tobacco Cessation:Counseling Given: Not Answered Alcohol Use Standard Drinks/Week Comments Yes 0 (1 standard drink = 0.6 oz pur e alcohol) Sex and Gender Information Value Date Recorded Sex Assigned at Not on file Legal Sex Male 10:17 AM EDT Gender Identity Not on file Sexual Orientation Not on file Last Filed Vital Signs Vital Sign Reading Time Taken Comments Blood Pressure 133/91 10/11/2024 9:14 AM EDT Pulse 90 10/11/2024 9:14 AM EDT Temperature 36.1 C (97 F) 10/11/2024 9:14 AM EDT Respiratory Rate 16 10/11/2024 9:14 AM EDT Oxygen Saturation 97% 10/11/2024 9:14 AM EDT Inhaled Oxygen Concentration - - Weight 123 kg (272 lb) 10/11/2024 9:14 AM EDT Height 175.3 cm (5' 9 ) 10/11/2024 9:14 AM EDT Body Mass Index 40.17 10/11/2024 9:14 AM EDT Plan of Treatment Upcoming Encounters Date Type Department Care Team (Late st Contact Info) Description 02/03/2025 11:00 AM EDT Office Visit [facility] [address] [place] [address] [place] [address] Health Maintenance Due Date Last Done Comments Colorectal Cancer Screening: Annual FOBT 06/21/2008 Colorectal Cancer Screening: Colonoscopy 06/21/2008 Colorectal Cancer Screening: Sigmoidoscopy 06/21/2008 Diabetes: Pedal Pulse Checked 12/26/2023 Diabetes: Sensory Foot Exam 12/26/2023 Diabetes: Visual Foot Exam 12/26/2023 Diabetes: Hemoglobin A1C 10/08/2024 07/08/2024 Influenza Vaccine (#1) 2024 , 03/21/2023, 02/06/2022, Additional history exists Diabetes: Ophthalmology Exam 08/16/2025 08/16/2024, 05/18/2024, 05/13/2023 Pneumococcal Vaccine: 50+ Years (4 of 4 - PCV20 or PCV21) 02/02/2026 02/02/2021, 11/28/2016, 05/10/2015 Pneumococcal Vaccine: Peds (0 to 5 Years) and At-Risk Patients (6 to 49 Years) Discontinued 02/02/2021, 11/28/2016, 05/10/2015 Hepatitis B Vaccine Aged Out 04/05/2024, 01/30/2024, 07/21/2023 No longer eligible based on patient's age to complete this topic Insurance [facility] 1,2,3 (VACCN) Medicare [facility] 1,2,3 (VACCN) Care Teams Public Relations Director Relationship Specialty Start Date End Date Celsa Melendez PA [address] [place] [address] PCP - General Physician Investor Relations Director 02/17/24
--- OUTSIDE RECORDS SUMMARY | 2024-12-01 14:49 | XMS_ITS | Clinical Summary ---
Author Organization [facility] Address [address] [place] [address] Care Team Providers Care Packaging Tech Name Role Phone Altaf Melendez Primary Care Provider [phone] Allergies Active Allergy Reactions Criticality Noted Date Comments Ibuprofen Other (See Comments) High 11/04/2018 Effects kidney function Morphine Itching Medium 11/04/2018 Medications Medication Sig Dispensed Refills Start Date End Date Status amLODIPine (NORVASC) tablet 10 mg Take 1 tablet (10 mg total) by mouth daily. 0 Active carboxymethylcellulose PF (REFRESH PLUS) 0.5 % SOLN 1 drop 4 (four) times a day. 0 Active cholecalciferol (VITAMIN D3) 1000 units tablet Take 1 tablet (1,000 Units total) by mouth daily. 0 Active ferrous gluconate (FERGON) 324 MG tablet Take 1 tablet (324 mg total) by mouth every morning with breakfast. 0 Active finasteride (PROSCAR) 5 MG tablet Take 1 tablet (5 mg total) by mouth daily. 0 Active gabapentin (NEURONTIN) 300 MG capsuleIndications:take 2 capsules 2 hours before going to bed Take 1 capsule (300 mg total) by mouth every night at bedtime. 0 Active HYDRALAZINE HCL PO Take 100 mg by mouth 3 (three) times a day. 0 Active labetalol (NORMODYNE) 300 MG tablet Take 1 tablet (300 mg total) by mouth 3 (three) times a day. 0 Active Magnesium Oxide 420 MG TABS Take 420 mg by mouth daily. 0 Active sildenafil (VIAGRA) 100 MG tablet Take 1 tablet (100 mg total) by mouth daily as needed for erectile dysfunction. 0 Active valsartan (DIOVAN) tablet 160 mg Take 1 tablet (160 mg total) by mouth daily. 0 Active furosemide (LASIX) 40 MG tablet Take 1 tablet (40 mg total) by mouth daily. 0 Active sodium bicarbonate 650 MG tablet Take 1 tablet (650 mg total) by mouth 3 (three) times a day. 0 Active rivaroxaban (XARELTO) 2.5 MG tablet Take 1 tablet (2.5 mg total) by mouth daily. 0 Active adalimumab (HUMIRA PEN) 40 MG/0.4ML prefilled pen injector Inject 40 mg under the skin every 14 (fourteen) days. 0 Active dilTIAZem (CARDIZEM CD) 240 MG 24 hr capsule Take 1 capsule (240 mg total) by mouth daily. 0 Active semaglutide-weight management (WEGOVY) 0.25 MG/0.5ML subcutaneous auto-injector Inject under the skin. 0 Active atorvastatin (LIPITOR) tablet 80 mg Take 0.5 tablets (40 mg total) by mouth. 0 04/30/2023 Active warfarin (COUMADIN) 5 MG tablet Take by mouth. 0 11/22/2016 Active torsemide (DEMADEX) 20 MG tablet Take 2 tablets (40 mg total) by mouth. 0 01/15/2024 Active Sodium Zirconium Cyclosilicate 5 g PACK Take by mouth. 0 01/15/2024 Active Active Problems Problem Noted Date Diagnosed Date Anemia 01/13/2023 Type 2 DM with CKD stage 3 and hypertension 01/20 Iron deficiency anemia due to chronic blood loss 11/04/2018 Social History Tobacco Use Types Packs/Day Years Used Date Smoking Tobacco: Former Smokeless Tobacco: Former Alcohol Use Standard Drinks/Week Comments No 0 (1 standard drink = 0.6 oz pur e alcohol) Sex and Gender Information Value Date Recorded Sex Assigned at Male 09/19/2021 4:26 PM EDT Gender Identity Not on file Sexual Orientation Not on file Job Start Date Occupation Industry Not on file Not on file Not on file Last Filed Vital Signs Vital Sign Reading Time Taken Comments Blood Pressure 168/78 02/05/2024 2:14 PM EDT Pulse 76 02/05/2024 2:14 PM EDT Temperature 36.4 C (97.6 F) 02/05/2024 2:14 PM EDT Respiratory Rate 18 02/05/2024 2:14 PM EDT Oxygen Saturation 100% 02/05/2024 2:14 PM EDT Inhaled Oxygen Concentration - - Weight 125.4 kg (276 lb 6.4 oz) 01/19/2024 1:59 PM EDT Height 175.3 cm (5' 9 ) 09/11/2023 9:30 AM EDT Body Mass Index 40.82 09/11/2023 9:30 AM EDT Plan of Treatment Health Maintenance Due Date Last Done Comments Hepatitis C Screening 1960 Depression Screening 1971 BMI Counseling 06/21/1977 Preventative Health Evaluation 06/21/1977 Colon Cancer Screening (Colonoscopy) 06/21/2004 Hepatitis B Vaccines (3 of 3 - 19+ 3-dose series) 03/26/2024 01/30/2024, 07/21/2023 Fall Risk Assessment 06/21/2024 Influenza Vaccine (#1) 2024 3, 02/06/2022, 02/02/2021, Additional history exists Pneumococcal Vaccine (4 of 4 - PPSV23 or PCV20) 02/02/2026 02/02/2021, 11/28/2016, 05/10/2015 Pneumococcal Vaccine (4 of 4 - PPSV23 or PCV20) 02/02/2026 02/02/2021, 11/28/2016, 05/10/2015 DTap / Tdap / Td (3 - Td or Tdap) 12/09/2032 12/09/2022, 06/11/2013, 04/21/1999 RSV Adult > 60+ Yrs or Completed 04/30/2023 Shingrix-Zoster Vaccine Completed 05/28/2023, 10/21 COVID-19 Vaccine Completed 01/30/2024, 03/21/2023 RSV Ped < 20 months Aged Out No longe r eligible based on patient's age to complete this topic Care Teams Packaging Tech Relationship Specialty Start Date End Date Altaf Melendez PA [address] [facility] [place] [place] [id number] PCP - General Physician Behavioral Health Case Manager 10/19/18
--- OUTSIDE RECORDS SUMMARY | 2024-12-01 14:49 | XMS_ITS | Clinical Summary ---
Author Organization [facility] Address [address] [place] [address] Phone Care Team Providers Care Animal Husbandry Professor Name Role Phone Altaf Melendez Primary Care Provider [phone] Allergies Active Allergy Reactions Criticality Noted Date Comments Ibuprofen Other High 11/04/2018 Effects kidney function Morphine Itching Medium 11/04/2018 Medications adalimumab (HUMIRA CF) 40 mg/0.4 mL pen Inject 40 mg under the skin every 14 (fourteen) days. Active carboxymethylcel lulose PF (Refresh Plus) 0.5 % ophthalmic solution 1 drop 4 (four) times a day. Active cholecalciferol (VITAMIN D-3) 25 mcg (1,000 unit) tablet Take 1 tablet (1,000 Units total) by mouth daily. Active ferrous gluconate (FERGON) 324 mg (38 mg iron) tablet Take 1 tablet (324 mg total) by mouth every morning with breakfast. Active finasteride (PROSCAR) 5 mg tablet Take 1 tablet (5 mg total) by mouth 1 (one) time each day. Active gabapentin (NEURONTIN) 300 mg capsule Take 1 capsule (300 mg total) by mouth every night at bedtime. Active hydralazine HCl (HYDRALAZINE ORAL) Take 100 mg by mouth 3 (three) times a day. Active semaglutide (WEGOVY) 0.25 mg/0.5 mL injection pen Inject under the skin. Active sildenafiL (VIAGRA) 100 mg tablet Take 1 tablet (100 mg total) by mouth daily as needed for erectile dysfunction. Active sodium bicarbonate 650 mg tablet Take 1 tablet (650 mg total) by mouth 3 (three) times a day. Active torsemide (DEMADEX) 20 mg tablet Take 2 tablets (40 mg total) by mouth 1 (one) time each day. Active allopurinoL (ZYLOPRIM) 300 mg tablet Take 1 tablet (300 mg total) by mouth 1 (one) time each day. Active atorvastatin (LIPITOR) 40 mg tablet Take 1 tablet (40 mg total) by mouth at bedtime. Active apixaban (ELIQUIS) 5 mg tablet Take 1 tablet (5 mg total) by mouth 2 (two) times a day. 60 each 5 Active amLODIPine (NORVASC) 5 mg tablet Take 1 tablet (5 mg total) by mouth 1 (one) time each day. Active metoprolol tartrate (LOPRESSOR) 25 mg tablet Take 0.5 tablets (12.5 mg total) by mouth 2 (two) times a day. 180 each 3 5 Active Active Problems Problem Noted Date Diagnosed Date Moderate concentric left ventricular hypertrophy 03/25/2024 Assessment & Plan (10/15/2024 8:58 AM EDT): Likely from accommodation of severe hypertension and end-stage renal disease. Cardiac PYP study was negative for evidence of cardiac amyloidosis and AL studies also negative. Assessment & Plan (08/02/2024 2:07 PM EDT): Likely from combination of severe hypertension and end-stage renal disease. Will order serum immuno fixation to complete amyloid cardiomyopathy workup. Assessment & Plan (03/25/2024 4:03 PM EST): Euvolemic on exam today. Continue to continue current antihypertensive regimen including amlodipine 10 mg daily, hydralazine 100 mg 3 times daily and torsemide 40 mg daily Discussed with Dr. Childress. LVH likely in the setting of chronic kidney disease and hypertension tensive heart disease but, as previously recommended, we will pursue workup for infiltrative process. Will begin with workup for amyloid including serum and urine immuno fixation and kappa lambda chains and will correlate with renal function. Will hold off on cardiac MRI at this time given his chronic kidney disease. Orders: Immunofixation electrophoresis serum; Future Immunofixation, urine; Future Chacra-lambda free light chains, quantitative; Future Chacra-lambda light chains, total; Future Nuclear cardiac PYP amyloid study (CV Performed); Future Immunofixation electrophoresis serum Chacra-lambda light chains, total Other chest pain 03/25/2024 Assessment & Plan (08/02/2024 2:07 PM EDT): Stress test was negative. Will continue primary prevention. Assessment & Plan (03/25/2024 4:03 PM EST): No recurrent chest pain. Had a normal nuclear stress test in the hospital ([facility] 12/2023). Continue primary prevention of CAD. Myocardial infarction (CMS/HCC V24, CMS/HCC V28) 03/23/2024 A-fib (CMS/HCC V24, CMS/HCC V28) 03/23/2024 Assessment & Plan (10/15/2024 8:57 AM EDT): A 30-day ROCT revealed paroxysmal atrial fibrillation with a burden of 6.6%. He is in atrial fibrillation by examination today, rate 103 bpm. He has not yet started metoprolol which I have resent to the [facility] pharmacy and asked him to contact the office if he has any difficulty obtaining this prescription. Will see him back in a few months and titrate dose as tolerated. I have asked him to contact the office if he has any worsening symptoms. I again discussed his option for antiarrhythmic therapy with amiodarone. We discussed the risks of amiodarone therapy including risk for pulmonary toxicity, hepatotoxicity, risk for worsening arrhythmias, risk for thyroid impairment and photosensitivity with need to wear sunscreen and protective clothing when in direct sunlight. We will monitor the patient for these conditions throughout treatment. He continues to decline at this time. Assessment & Plan (08/02/2024 2:07 PM EDT): He has fairly frequent paroxysmal atrial fibrillation. He is not on any rate control medications due to previous episode of bradycardia when he also had hyperkalemia. His 30-day monitor showed no profound bradycardia. I will start metoprolol 12.5 mg twice a day and uptitrate the dose as tolerated. There is no good option of antiarrhythmic medication given his other medical problems and the only option is amiodarone. I had a discussion with him about amiodarone and potential side effects. He is not willing to take this medication yet. Assessment & Plan (03/25/2024 4:03 PM EST): In normal sinus rhythm today. No symptoms related to atrial fibrillation. Now on coumadin given his chronic renal insufficiency which is being followed by the [facility]. No bleeding. 30 day ROCT given bradycardia reported in the hospital was reassuring. Orders: ECG 12 lead HTN (hypertension) 03/22/2024 Assessment & Plan (10/15/2024 8:54 AM EDT): Blood pressure is elevated in the office today initially 170/80 and on recheck 160/80, which is still suboptimal in the setting of stage V renal disease. He did just take his morning medications prior to his visit and he reports readings are generally better on his home blood pressure machine. He also has not started metoprolol yet. I will make no changes to his current medical therapy, continue amlodipine, hydralazine, metoprolol and torsemide as prescribed. Assessment & Plan (08/02/2024 2:07 PM EDT): Still suboptimal. Due to his stage V renal disease, will continue current regimen. Assessment & Plan (03/25/2024 4:03 PM EST): Followed closely by his PCP and senior technical analyst at the [facility]. No plans at this time for dialysis/fistula placement. 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 (CMS/HCC V24, CMS/HCC V28) 02/12/2019 Iron deficiency anemia due to chronic blood loss 11/04/2018 Resolved Problems Problem Noted Date Diagnosed Date Resolved Date Chest pain 07/09/2024 07/09/2024 Encounters Date Type Department Care Team Description 10/15/2024 12:49 PM EDT - 10/15/2024 11:59 PM EDT Hospital Encounter [facility] [address] [place] [phone] Charlene Claire MD Anemia due to chronic kidney disease, unspecified CKD stage (Primary Dx) Discharge Disposition: Home or Self Care 10/15/2024 8:10 AM EDT Office Visit [facility] [address] [phone] Liza Thrasher NP Primary hypertension (Primary Dx); Moderate concentric left ventricular hypertrophy; Paroxysmal atrial fibrillation (CMS/HCC V24, CMS/HCC V28) 09/16/2024 9:00 AM EDT Office Visit [facility] Hematology Oncology [address] [place] [phone] Charlene Claire MD Anemia due to stage 4 chronic kidney disease (CMS/HCC V24, CMS/HCC V28) (Primary Dx) 09/15/2024 12:48 PM EDT - 09/15/2024 11:59 PM EDT Hospital Encounter [facility] [address] [place] [phone] Charlene Claire MD Anemia due to chronic kidney disease, unspecified CKD stage (Primary Dx) Discharge Disposition: Home or Self Care 09/07/2024 Telephone [facility] [address] [facility] [address] [place] [phone] Gabi Childress MD Medication 09/07/2024 Telephone [facility] [address] [facility] [address] [place] [address] Gabi Childress MD Recall Appointment from Last 3 Months Immunizations Name Administration Dates Next Due Moderna SARS-CoV-2 COVID-19, mRNA, LNP-S, preservative free 03/21/2023 Medical History Medical History Date Comments Anemia DX:Anemia Diabetes mellitus (CMS/HCC V 24, CMS/HCC V28) DX:Diabetes mellitus (HCC) Hypertension DX:Hypertension Chronic kidney disease DX:Chroni c kidney disease Chronic atrial fibrillation (CMS/HCC V24, CMS/HCC V28) DX:Chronic atrial fibrillati on ([facility]) Esotropia DX:Esotropia Elevated prostate specific antigen (PSA) DX:Elevated prostate specific antigen (PSA) Dizziness and giddiness DX:Dizzi ness and giddiness Other unilateral secondary osteoarthritis of knee DX:Other unilateral secondar y osteoarthritis of knee Restless leg syndrome DX:Restles s leg syndrome Sleep apnea, unspecified DX:Slee p apnea, unspecified Thalassemia DX:Thalassemia CHF (congestive heart failur e) ([facility] V24, [facility] V28) DX:CHF (congestive heart luci lure) ([facility]) Atrial fibrillation ([facility] V24, [facility] V28) Social History Tobacco Use Types Packs/Day Years Used Date Smoking Tobacco: Former Smokeless Tobacco: Former Tobacco Cessation:Counseling Given: Not Answered Alcohol Use Standard Drinks/Week Comments No 0 (1 standard drink = 0.6 oz pur e alcohol) Interpersonal Safety Answer Date Record ed Physical Abuse 07/09/2024 Verbal Abuse 07/09/2024 Sex and Gender Information Value Date Recorded Sex Assigned at Male 05/05/2024 8:16 AM EST Legal Sex Male 10:09 AM EST Gender Identity Male 05/05/2024 8:16 AM EST Sexual Orientation Straight 05/05/2024 8: 16 AM EST Obstetrics History Last Filed Vital Signs Vital Sign Reading Time Taken Comments Blood Pressure 155/66 10/15/2024 1:02 PM EDT Pulse 66 10/15/2024 1:02 PM EDT Temperature 37.1 C (98.8 F) 10/15/2024 1:02 PM EDT Respiratory Rate 16 10/15/2024 1:02 PM EDT Oxygen Saturation 99% 10/15/2024 1:02 PM EDT Inhaled Oxygen Concentration - - Weight 126 kg (277 lb 9.6 oz) 10/15/2024 7:59 AM EDT Height 175.3 cm (5' 9 ) 10/15/2024 7:59 AM EDT Body Mass Index 40.99 10/15/2024 7:59 AM EDT Plan of Treatment Upcoming Encounters Date Type Department Care Team (Late st Contact Info) Description 12/08/2024 8:30 AM EDT Appointment [facility] [address] [place] [phone] 12/30/2024 7:40 AM EDT Office Visit [facility] [address] [facility] [address] [place] [phone] Liza Thrasher NP [address] [place] [address] 03/29/2025 9:50 AM EST Office Visit [facility] [address] [facility] [address] [place] [phone] Gabi Childress MD [address] [phone] 09/20/2025 10:00 AM EDT Office Visit [facility] Hematology Oncology [address] [place] [phone] Charlene Claire MD [address] [place] [address] Health Maintenance Due Date Last Done Comments Diabetes: Annual Foot Exam 06/21/1969 Diabetes: Annual Retina Eye Exam 06/21/1969 Abdominal Aortic Aneurysm (AAA) Screen 03/29/2022 Colorectal Cancer Screening: Colonoscopy 03/29/2022 Hepatitis C Screening 03/29/2022 Medicare Annual Wellness Visit 03/29/2022 Social Influencers of Health Screening 03/29/2022 Depression Screening 04/21/2024 COVID-19 Vaccine (8 - Moderna risk season) 2024 01/30/2024, 03/21/2023, 02/19/2022, Additional history exists Influenza Vaccine (#1) 2024 , 03/21/2023, 02/06/2022, Additional history exists Diabetes: Blood Sugar Control Test (HGBA1C) 01/08/2025 07/08/2024 Hypertension/CHF/CAD Annual BMP Blood Test 09/07/2025 09/07/2024, 07/09/2024, 07/08/2024, Additional history exists Falls Risk Assessment 10/15/2025 10/15/2024 Pneumococcal Vaccine: 50+ Years (4 of 4 - PCV20 or PCV21) 02/02/2026 02/02/2021, 11/28/2016, 05/10/2015 Cholesterol Screening (Lipid Panel) 07/09/2029 07/09/2024 DTaP,Tdap,and Td Vaccines (4 - Td or Tdap) 12/09/2032 12/09/2022, 06/11/2013, 04/21/1999 RSV Immunization Adult Patients Completed 04/30/2023 Zoster Vaccines Completed 05/28/2023, 10/21/2022 Hepatitis B Vaccines Completed 04/05/2024, 01/30/2024, 07/21/2023 HIB Vaccines Aged Out No longer eligi ble based on patient's age to complete this topic HPV Vaccines Aged Out No longer eligi ble based on patient's age to complete this topic Hepatitis A Vaccines Aged Out No long er eligible based on patient's age to complete this topic IPV Vaccines Aged Out No longer eligi ble based on patient's age to complete this topic MMR Vaccines Aged Out No longer eligi ble based on patient's age to complete this topic Meningococcal ACWY Vaccine Aged Out N o longer eligible based on patient's age to complete this topic Meningococcal B Vaccine Aged Out No l onger eligible based on patient's age to complete this topic RSV Immunization Patients Under 20 months Aged Out No longer eligible based on patient's age to complete this topic Varicella Vaccines Aged Out No longer eligible based on patient's age to complete this topic Procedures Procedure Name Priority Date/Time Associated Diagnosis Comments CBC WITH AUTO DIFFERENTIAL Routine 11/23/2024 7:44 AM EDT Anemia due to chronic kidney disease, unspecified CKD stage CBC AND DIFFERENTIAL Routine 11/23/2024 7:44 AM EDT Anemia due to chronic kidney disease, unspecified CKD stage CBC WITH AUTO DIFFERENTIAL Routine 10/11/2024 11:08 AM EDT Anemia due to chronic kidney disease, unspecified CKD stage CBC AND DIFFERENTIAL Routine 10/11/2024 11:08 AM EDT Anemia due to chronic kidney disease, unspecified CKD stage ..MISCELLANEOUS REFERENCE LAB TEST 09/10/2024 ..MISCELLANEOUS REFERENCE LAB TEST 09/10/2024 ..MISCELLANEOUS REFERENCE LAB TEST 09/10/2024 ..MISCELLANEOUS REFERENCE LAB TEST 09/10/2024 CBC WITH AUTO DIFFERENTIAL Routine 09/07/2024 9:48 AM EDT Anemia due to chronic kidney disease, unspecified CKD stage CBC AND DIFFERENTIAL Routine 09/07/2024 9:48 AM EDT Anemia due to chronic kidney disease, unspecified CKD stage BASIC METABOLIC PANEL Routine 09/07/2024 9:48 AM EDT Iron deficiency anemia secondary to blood loss (chronic) FERRITIN Routine 09/07/2024 9:48 AM EDT Iron deficiency anemia secondary to blood loss (chronic) IRON AND TIBC Routine 09/07/2024 9:48 AM EDT Iron deficiency anemia secondary to blood loss (chronic) LIPID PANEL WITH REFLEX TO DIRECT LDL Routine 07/09/2024 4:25 AM EDT HEMOGLOBIN A1C Add-On 07/08/2024 4:50 PM EDT from Last 3 Months or Most Recently Relevant to Health Maintenance Results * (ABNORMAL) CBC auto differential (11/23/2024 7:44 AM EDT) Only the most recent of3 resultswithin the time period is included. WBC 3.6(L) 4.8 - 10.8 K/mcL LAB HEMETOLOGY METHOD 11/23/2024 9:06 AM EDT [facility] RBC 3.20(L) 4.50 - 5.50 M/mcL LAB HEMETOLOGY METHOD 11/23/2024 9:06 AM EDT [facility] Hemoglobin 7.3(L) 13.5 - 17.5 g/dL LAB HEMETOLOGY METHOD 11/23/2024 9:06 AM [facility] Hematocrit 24.1(L) 42.0 - 54.0 % LAB HEMETOLOGY METHOD 11/23/2024 9:06 AM [facility] MCV 75.1(L) 79.0 - 98.0 FL LAB HEMETOLOGY METHOD 11/23/2024 9:06 AM [facility] MCH 22.7(L) 27.0 - 32.0 pcg LAB HEMETOLOGY METHOD 11/23/2024 9:06 AM [facility] MCHC 30.3(L) 32.0 - 37.0 g/dL LAB HEMETOLOGY METHOD 11/23/2024 9:06 AM [facility] RDW 16.3(H) 11.0 - 15.0 % LAB HEMETOLOGY METHOD 11/23/2024 9:06 AM [facility] Platelets 165 130 - 400 K/mcL LAB HEMETOLOGY METHOD 11/23/2024 9:06 AM [facility] MPV 10.8 7.0 - 11.0 FL LAB HEMETOLOGY METHOD 11/23/2024 9:06 AM [facility] NRBC 0.0 <1.0 % LAB HEMETOLOGY METHOD 11/23/2024 9:06 AM [facility] NRBC Absolute 0.00 <0.10 K/mcL LAB HEMETOLOGY METHOD 11/23/2024 9:06 AM [facility] Neutrophils Relative 51.9 % LAB HEMETOLOGY METHOD 11/23/2024 9:06 AM [facility] Lymphocytes Relative 30.8 % LAB HEMETOLOGY METHOD 11/23/2024 9:06 AM [facility] Monocytes Relative 12.9 % LAB HEMETOLOGY METHOD 11/23/2024 9:06 AM [facility] Eosinophils Relative 2.8 % LAB HEMETOLOGY METHOD 11/23/2024 9:06 AM EDT [facility] Basophils Relative 0.8 % LAB HEMETOLOGY METHOD 11/23/2024 9:06 AM [facility] Immature Granulocytes Relative 0.8 % LAB HEMETOLOGY METHOD 11/23/2024 9:06 AM EDT [facility] Neutrophils Absolute 1.85 1.50 - 7.00 K/mcL LAB HEMETOLOGY METHOD 11/23/2024 9:06 AM EDT [facility] Lymphocytes Absolute 1.10 1.00 - 5.00 K/mcL LAB HEMETOLOGY METHOD 11/23/2024 9:06 AM [facility] Monocytes Absolute 0.46 0.20 - 1.00 K/mcL LAB HEMETOLOGY METHOD 11/23/2024 9:06 AM [facility] Eosinophils Absolute 0.10 0.00 - 0.50 K/mcL LAB HEMETOLOGY METHOD 11/23/2024 9:06 AM EDT [facility] Basophils Absolute 0.03 0.00 - 0.20 K/mcL LAB HEMETOLOGY METHOD 11/23/2024 9:06 AM [facility] Immature Granulocytes Absolute 0.03 0.00 - 0.03 K/mcL LAB HEMETOLOGY METHOD 11/23/2024 9:06 AM [facility] Blood Venous blood specimen / Unknown Venipuncture / Unknown 11/23/2024 7:44 AM EDT 11/23/2024 8:53 AM EDT us Charlene Claire MD LAB BLOOD ORDERABLES Final R esult [facility] [address] [place] [address], * Miscellaneous reference lab test (09/10/2024) Only the most recent of4 resultswithin the time period is included. Provider Onbase MD LAB BLOOD ORDERABLES Final Re sult * (ABNORMAL) Iron and TIBC (09/07/2024 9:48 AM EDT) Iron 43(L) 50 - 160 mcg/dL LAB CHEMISTRY METHOD 09/07/2024 11:47 AM EDT [facility] TIBC 233(L) 250 - 450 mcg/dL LAB CHEMISTRY METHOD 09/07/2024 11:47 AM EDT [facility] Iron Saturation 18(L) 20 - 50 % LAB CHEMISTRY METHOD 09/07/2024 11:47 AM EDT [facility] Blood Venous blood specimen / Unknown Venipuncture / Unknown 09/07/2024 9:48 AM EDT 09/07/2024 10:54 AM EDT Charlene Claire MD LAB BLOOD ORDERABLES Final R esult Performing Organization Address City/[facility]/ZIP Co de Phone Number [facility] [address] [place] [address], * Ferritin (09/07/2024 9:48 AM EDT) Ferritin 156 26 - 388 ng/mL LAB CHEMISTRY METHOD 09/07/2024 11:47 AM EDT [facility] Blood Venous blood specimen / Unknown Venipuncture / Unknown 09/07/2024 9:48 AM EDT 09/07/2024 10:54 AM EDT Charlene Claire MD LAB BLOOD ORDERABLES Final R esult Performing Organization Address City/[facility]/ZIP Co de Phone Number [facility] [address] [place] [address], * (ABNORMAL) Basic metabolic panel (09/07/2024 9:48 AM EDT) Sodium 143 133 - 145 mmol/L LAB CHEMISTRY METHOD 09/07/2024 11:59 AM [facility] Potassium 3.1(L) 3.5 - 5.5 mmol/L LAB CHEMISTRY METHOD 09/07/2024 11:59 AM [facility] Chloride 109 96 - 110 mmol/L LAB CHEMISTRY METHOD 09/07/2024 11:59 AM [facility] CO2 24 21 - 32 mmol/L LAB CHEMISTRY METHOD 09/07/2024 11:59 AM [facility] Anion Gap 10 3 - 11 LAB CHEMISTRY METHOD 09/07/2024 11:59 AM [facility] Glucose 94 70 - 100 mg/dL LAB CHEMISTRY METHOD 09/07/2024 11:59 AM [facility] BUN 58(H) 5 - 25 mg/dL LAB CHEMISTRY METHOD 09/07/2024 11:59 AM [facility] Creatinine 7.58(H) 0.70 - 1.30 mg/dL LAB CHEMISTRY METHOD 09/07/2024 11:59 AM [facility] eGFR 7(L) >=60 mL/min/1. 73m2 LAB CHEMISTRY METHOD 09/07/2024 11:59 AM [facility] Comment:Calculation based on the Chronic Kidney Disease Epidemiology Collaboration (CKD-EPI) equation refit without adjustment for race. BUN/Creatinine Ratio 7.7 LAB CHEMISTRY METHOD 09/07/2024 11:59 AM [facility] Calcium 7.8(L) 8.5 - 10.5 mg/dL LAB CHEMISTRY METHOD 09/07/2024 11:59 AM [facility] Blood Venous blood specimen / Unknown Venipuncture / Unknown 09/07/2024 9:48 AM EDT 09/07/2024 10:54 AM EDT us Charlene Claire MD LAB BLOOD ORDERABLES Final R esult [facility] [address] [place] [address], [place] [phone] * Lipid panel with reflex to direct LDL (07/09/2024 4:25 AM EDT) [facility] Cholesterol 101 0 - 200 mg/dL LAB CHEMISTRY METHOD 07/09/2024 5:53 AM EDT [facility] Triglycerides 31 0 - 150 mg/dL LAB CHEMISTRY METHOD 07/09/2024 5:53 AM EDT [facility] HDL 57 >=40 mg/dL LAB CHEMISTRY METHOD 07/09/2024 5:53 AM EDT [facility] LDL Calculated 38 0 - 100 mg/dL LAB CHEMISTRY METHOD 07/09/2024 5:53 AM EDT [facility] VLDL Cholesterol Vu 6.2 mg/dL LAB CHEMISTRY METHOD 07/09/2024 5:53 AM EDT [facility] Non HDL Chol. (LDL+VLDL) 44 <145 mg/dL LAB CHEMISTRY METHOD 07/09/2024 5:53 AM EDT [facility] Chol/HDL Ratio 1.8 0.0 - 4.4 LAB CHEMISTRY METHOD 07/09/2024 5:53 AM EDT [facility] Blood Venous blood specimen / Unknown Venipuncture / Unknown 07/09/2024 4:25 AM EDT 07/09/2024 5:05 AM EDT us Juni BRUCE LAB BLOOD ORDERABLES Final Res ult [facility] [address] [place] [address], [place] [phone] * Hemoglobin A1c (07/08/2024 4:50 PM EDT) Hemoglobin A1C 5.5 <6.5 % LAB CHEMISTRY METHOD 07/09/2024 8:51 AM EDT [facility] Mean Bld Glu Estim. 111 mg/dL LAB CHEMISTRY METHOD 07/09/2024 8:51 AM EDT [facility] Blood Venous blood specimen / Unknown Venipuncture / Unknown 07/08/2024 4:50 PM EDT 07/08/2024 5:03 PM EDT us Juni BRUCE LAB BLOOD ORDERABLES Final Res ult [facility] [address] [place] [address], from Last 3 Months or Most Recently Relevant to Health Maintenance Insurance MEDICARE [facility] Advance Directives * Full Code - Confirmed (Latest Code Status on File) Date Activated Date Inactivated Comments 07/09/2024 4:11 AM 07/09/2024 6:[address] atus was ascertained in the following way: Code status discussion: discussion with patient To update the patient's code status, place a code status order. Do not modify or discontinue any currently active code status orders. * Full Code - Default Date Activated Date Inactivated Comments 07/09/2024 1:48 AM 07/09/2024 4:11 AM This is orde r is used when code status has not been discussed with the patient, or code status is otherwise unknown/unconfirmed To update the patient's code status, place a code status order. Do not modify or discontinue any currently active code status orders. Care Teams Animal Husbandry Professor Relationship Specialty Start Date End Date Altaf Melendez PA [address] [place] [phone] PCP - General Physician Cigarette Examiner 10/19/18
--- OUTSIDE RECORDS SUMMARY | 2024-12-01 14:49 | XMS_ITS ---
[facility] Care Team Organization Name Specialty Phone Email Start Date [facility]/26/20222023
[2024-12-01 15:04] VITALS: BP 152/80; PULSE 70; O2SAT 97; BMI 41.7
== END 2024-12-01 15:23 | disposition home or self-care (01) ==
LOC: HO.RHES 14:41
PROVIDERS: PCP Physician Assistant Medical; Referring Provider Student in an Organized Health Care Education/Training Program; Visit Provider Student in an Organized Health Care Education/Training Program
DX: M05.9 Rheumatoid arthritis with rheumatoid factor, unspecified (principal); M1A.39X0 Chronic gout due to renal impairment, multiple sites, without tophus (tophi); Z51.81 Encounter for therapeutic drug level monitoring; Z79.620 Long term (current) use of immunosuppressive biologic
CPT/HCPCS: 99214; G2211

== ENCOUNTER 2024-12-01 14:40 | Outpatient (REF) | payer OTHER, SELFPAY ==
--- OUTSIDE RECORDS SUMMARY | 2011-08-23 20:00 | XMS_ITS | Continuity of Care Document ---
Author Organization [facility] Address [address] [place] [address] [place] [address] Phone Care Team Providers Care Financial Services Agent Name Role Phone Unavailable Unavailable Unavailable Allergies, Adverse Reactions, Alerts Substance Reaction Status Criticality No Known Drug Allergies Active No I nformation Medications Medication Instructions Dosage Effective Dates (start - stop) Status Comments Percocet 5 mg-325 mg tablet 1 -2 Tablet every 4 - 6 hrs, as needed - Active amlodipine 10 mg tablet 1 Tablet daily - Active atenolol 100 mg tablet 1 Tablet two times daily - Active furosemide 20 mg tablet 1 Tablet daily - Active hydrocodone 5 mg-acetaminophen 500 mg tablet 1 Tablet as needed - Active losartan 100 mg tablet 1 Tablet daily - Active potassium chloride ER 10 mEq tablet,extended release(part/cryst) 1 Capsule ER daily - Active Travatan Z 0.004 % eye drops 1 drop(s) daily in each eye - Active Advance Directives Directive Yes / No Effective Date File Name No Information Encounters Encounter Description Practice Location Reason(s) For Visit Diagnoses Date Provider Providers Copied on Encounter [address] [place], [id number], [place] tel:[phone] [facility] No Information No Information [address] [place], [id number], [place] [phone] [facility] No Information 1 Unidentified Provider. [address] [place] [address], [place], [address], . [address] [place], [id number], [phone] [facility] No Information 1 Provider Conversion. . [address] [place], [id number], tel:[phone] [facility] No Information Unidentified Provider. [address] [place] [address], [facility], . Family History Family Member Type Diagnosis Age At Onset No Information Payers Payer name Insurance type Covered libertarian ID Authoriza tion(s) No Information Social History Type Description Quantity Date Captured Comments Sex Male Smoking Status No Information Chief Complaint And Reason For Visit No Information Reason For Referral Reason For Referral No Information History Of Present Illness Encounter Date Complaint History Of Prese nt Illness No Information Functional Status Date Functional Assessmen t No Information Instructions Date Instruction Additional Infor mation No Information Assessments Type Assessment Date No Information Patient Care Teams Name Effective Dates (start - stop) Status Members No Information
--- OUTSIDE RECORDS SUMMARY | 2024-01-30 05:00 | XMS_ITS | Encounter Summary ---
Author Name [facility] [facility] [place] Address [address] [place] [address] Care Team Providers Care Opticianry Teacher Name Role Phone CELSA WHITE Primary Care Provider Unavailabl e Insurance Providers: All historical and current Section Date Range: From patient's date of to the date document was created. This section includes the names of all active insurance providers for the patient. Insurance Provider Type of Coverage Plan Name Start of Policy Coverage End of Policy Coverage Group Number Member ID Insurance Provider's Telephone Number Policy Chou's Name Patient's Relationship to Policy Chou MEDICAID MEDICAID [facility] MARJAN SCHUYLER Apr 21, 2015 MEDICAI D [id number] FREDA ROBERTSON PATIENT MEDICARE (WNR) MEDICARE (M) PART B Jun 19, 2014 PART B [id number] [phone] FREDA ROBERTSON PATIENT MEDICARE (WNR) MEDICARE (M) PART B Jun 19, 2014 PART B [id number] FREDA ROBERTSON PATIENT MEDICARE (WNR) MEDICARE (M) PART B Jun 19, 2014 PART B [id number] FREDA ROBERTSON PATIENT MEDICARE (WNR) MEDICARE (M) PART A Mar 21, 2013 PART A [id number] [id number] FREDA ROBERTSON PATIENT MEDICARE (WNR) MEDICARE (M) PART A Mar 21, 2013 PART A [id number] [phone] FREDA ROBERTSON PATIENT MEDICARE (WNR) MEDICARE (M) PART B Mar 21, 2013 PART B [id number] [phone] FREDA ROBERTSON PATIENT MEDICARE (WNR) MEDICARE (M) PART B Mar 21, 2013 PART B [id number] FREDA ROBERTSON PATIENT MEDICARE (WNR) MEDICARE (M) PART A Mar 21, 2013 PART A [id number] FREDA ROBERTSON PATIENT MEDICARE (WNR) MEDICARE (M) PART A Mar 21, 2013 PART A [id number] FREDA ROBERTSON PATIENT MEDICARE (WNR) MEDICARE (M) PART A Mar 21, 2013 PART A [id number] [phone] FREDA ROBERTSON PATIENT Selected Encounter This section includes the information on record at [place] for the Encounter. Date/Time Encounter Type Encounter Description Reason Provider Source Jan 30, 2024 09:00 AM OFF/OP EST AUGUST X REQ PHY/QHP PRIMARY CARE/MEDICINE ICD-10-CM Z23 Encounter for immunization DOT ZELAYA Charity Encounter Template Text not used by [place] Assessments - Encounter Diagnoses This section includes the primary and secondary diagnoses documented for the Encounter. Date/Time Primary/Secondary Diagnosis Diagnosis Name Provider Source Jan 30, 2024 02:33 PM PRIMARY Encounter for immunization DOT [place]ELAYA [place] Plan of Treatment: Future Appointments (+ 6 months) and Future Tests (+/- 45 days) The Plan of Treatment section includes future care activities for the patient from all [place] treatmentfacilities. This section includes future appointments and future orders which are active, pending or scheduled. Future Appointments This section includes appointments that were scheduled to occur 6 months from the date of the Encounter, up to a maximum of 20 appointments. The data comes from all [place] treatment facilities. Appointment Date/Time Appointment Type Appointme nt Facility Name Feb 17, 2024 10:30 AM AMBULATORY - [facility] [place] [facility] Feb 18, 2024 02:00 PM AM[facility]ULAT[facility] [place]ICINE [place] [place] [facility] Feb 25, 2024 08:30 AM AMBULATORY - MEDICINE [place] [facility] [place] [facility] Mar 02, 2024 11:00 AM AMBULATORY - [place]IC[place] [facility] Mar 08, 2024 01:15 PM AMBULATORY - MEDICINE [place] [facility] [place] [facility] Mar 24, 2024 03:30 PM AMBULATORY - MEDICINE [place] [facility] [place] [facility] Mar 25, 2024 02:15 PM [place]UL[place]ORY [place]IC[place] Mar 26, 2024 11:00 AM AM[place]ULATORY - [place]IC[place] Mar 30, 2024 10:30 AM AMBULATORY - NONE [place] [facility] [place] [facility] Apr 05, 2024 09:00 AM AM[place]ULATORY - [place]IC[place] Apr 07, 2024 10:00 AM AMBULATORY - MEDICINE [place] [facility] [place] [facility] Apr 15, 2024 10:20 AM AMBULATORY - MEDICINE [place] [facility] [place] [facility] May 03, 2024 10:00 AM AMBULATORY - NONE [place] [facility] [place] [facility] May 06, 2024 08:45 AM [facility] MEDIC[facility] May 17, 2024 02:30 PM AMBULATORY - MEDICINE [place] May 18, 2024 11:00 AM AMBULATORY - MEDICINE [place] [facility] May 19, 2024 09:00 AM AMBULATORY - MEDICINE [place] [facility] [place] [place] [facility] May 19, 2024 03:30 [facility] 21, 2024 08:30 AM AMBULATORY - REHAB MEDICIN E [place] May 21, 2024 10:00 AM AMBULATORY - MEDICINE [facility] Active, Pending, and Scheduled Orders This section includes a listing of several types of active, pending, and scheduled orders, including clinic medications orders, diagnostic test orders, procedure orders and consult orders; where the start date of the order is 45 days before the date of the Encounter or 45 days after the date of theEncounter. The data comes from all [place] treatment facilities. Test Date/Time Test Type Test Details Facility Name Dec 26, 2023 12:00 AM Laboratory - Chemi tess Order PT & INR (COUMADIN) BLOOD (BLUE-PLASMA) [facility] Lab Results: +/- 30 days of the encounter This section includes the Chemistry and Hematology Lab Results on record with [facility] for the patient. Radiology Reports and Pathology Reports are provided separately, in subsequent sections. Lab Results This section contains the Chemistry/Hematology Results that were resulted 30 days before or 30 daysafter the date of the Encounter. Date/Time Source Result Type Result - Unit Interpretation Reference Range Specimen Type Comment Feb 16, 2024 09:54 [facility] PT & INR (COUMADIN) PLASMA Specimen Type: PLASMA No comment entered. Ordering Provider: ROCKY TRIPLETT Report Released Date/Time: Jan 30, 2024 12:09 PM Reporting Lab: [facility] [address] [facility]forming Lab[facility] [address] INR 2.0 PROTIME 22.4 s H 10.0-13.1 Feb 16, 2024 09:54 AM [facility] PO4 SERUM Specimen Type: SERUM No comment entered. Ordering Provider: MICHAEL MONTALVO Report Released Date/Time: Jan 14, 2024 11:56 AM Reporting Lab: [facility] [address] Performing Lab: [facility]ITALUSETS [address] [address] PO4 4.2 mg/dL 2.5-5.0 Feb 16, 2024 09:54 AM [facility] PTH INTACT SERUM Specimen Type: SERUM No comment entered. Ordering Provider: MICHAEL MONTALVO Report Released Date/Time: Jan 14, 2024 11:56 AM Reporting Lab: [facility] [address] Performing Lab: [facility] [address] [address] PTH INTACT 666.0 pg/mL H 10-65 Feb 16, 2024 09:54 AM [facility] VITAMIN D (25-OH) SERUM Specimen Type: SERUM No comment entered. Ordering Provider: MICHAEL MONTALVO Report Released Date/Time: Jan 14, 2024 11:56 AM Reporting Lab: [facility]ERYRCOOS[facility]LEY [facility]ENTERTRN [facility]ITALUSETS [facility] [address] [facility] [address] Performing Lab: [facility]ERYRDCH [facility]ENTERN [facility]ITALUSETS [facility] [address] [facility] [address] VITAMIN D (25-OH) 38 ng/mL 20-50 Feb 16, 2024 09:54 AM [facility] URIC ACID SERUM Specimen Type: SERUM No comment entered. Ordering Provider: MICHAEL MONTALVO Report Released Date/Time: Jan 14, 2024 11:56 AM Reporting Lab: [facility]ITALUSE[address] [address] [facility]forming Lab: [facility] [address] [address] URIC ACID 6.2 mg/dL 3.5-7.2 Feb 16, 2024 09:54 AM [facility] MAGNESIUM SERUM Specimen Type: SERUM No comment entered. Ordering Provider: MICHAEL MONTALVO Report Released Date/Time: Jan 14, 2024 11:56 AM Reporting Lab: [facility]ITALUSE[address] [address] Performing Lab: [facility]USE[address] [address] MAGNESIUM 2.2 mg/dL 1.6-2.6 Feb 16, 2024 09:54 AM [facility] FERRITIN SERUM Specimen Type: SERUM No comment entered. Ordering Provider: MICHAEL MONTALVO Report Released Date/Time: Jan 14, 2024 11:56 AM Reporting Lab: [facility]ITALUSETS [address] [address] Performing Lab: [facility] [address] [address] FERRITIN 193 ng/mL 20-300 Feb 16, 2024 09:54 AM [facility] MICROALBUMIN CREATININE RATIO PANEL URINE Spe cimen Type: URINE No comment entered. Ordering Provider: MICHAEL MONTALVO Report Released Date/Time: Jan 14, 2024 11:56 AM Reporting Lab: [facility]ERYRDCH [facility]ENTERN [facility] HOS[facility]ITALUSETS [facility] [address] [facility] [address] Performing Lab: [facility]ERYRDCH [facility]ERN [facility]ITALUSEST[facility] [address] [facility] [address] MICROALBUMIN/CREATININE RATIO 2485.9 mg/g H 0-29.9 MICROALBUMIN,QUANTITATIVE 172.2 mg/dL RR UNAVAIL CREATININE URINE 69.27 mg/dL Feb 16, 2024 09:[address] [facility] BASIC METABOLIC PANEL (non-fasting) SERUM Spe cimen Type: SERUM No comment entered. Ordering Provider: MICHAEL MONTALVO Report Released Date/Time: Jan 14, 2024 11:56 AM Reporting Lab: [facility]ERYRDCH [facility]ENTERN [facility] HOSPITALUSEST[facility] [address] [facility] [address] Performing Lab: [facility] [address] UREA NITROGEN 56 mg/dL H 7-25 GLUCOSE 86 mg/dL 65-100 SODIUM 141 mmol/L 135-145 POTASSIUM 3.5 mmol/L 3.5-5.0 CHLORIDE 104 mmol/L 100-110 CO2 23 meq/L 20-30 CREATININE, Serum 5.51 mg/dL HH 0.50-1.40 eGFR(CKD-EPI 2020) 11 mL/min L >60 Feb 16, 2024 09:54 AM [facility] CHOLESTEROL SERUM Specimen Type: SERUM No comment entered. Ordering Provider: MICHAEL MONTALVO Report Released Date/Time: Jan 14, 2024 11:56 AM Reporting Lab: [facility]ITALUSEST[facility] [address] [facility] [address] Performing Lab: [facility]ITALUSE[address] [address] CHOLESTEROL 102 mg/dL Feb 16, 2024 09:54 AM [facility] IRON & TIBC PANEL SERUM Specimen Type: SERUM No comment entered. Ordering Provider: MICHAEL MONTALVO Report Released Date/Time: Jan 14, 2024 11:56 AM Reporting Lab: [facility] [address] [facility] [address] Performing Lab: [facility] SURGERYRL [place]N [place] [facility] [address] [facility] [address] TIBC 253 ug/dL 204-475 IRON 62 ug/dL 40-160 Transferrin Saturation 24.5 20.0-50.0 Transferrin (TRF) 192 mg/dL L 200-360 Feb 16, 2024 09:[address] [facility] HDL CHOLESTEROL SERUM Specimen Type: SERUM No comment entered. Ordering Provider: MICHAEL MONTALVO Report Released Date/Time: Jan 14, 2024 11:56 AM Reporting Lab: [facility]ERYRDCH [facility]ERN [facility] HOS[facility]ITALUSETS [facility] [address] [facility] [address] Performing Lab: [facility]ERYRDCH [facility]ENTERN [facility]OS[facility]ITALUSETS [address] [address] HDL CHOLESTEROL 54 mg/dL 40-60 Feb 16, 2024 09:54 AM [facility] CALCIUM SERUM Specimen Type: SERUM No comment entered. Ordering Provider: MICHAEL MONTALVO Report Released Date/Time: Jan 14, 2024 11:56 AM Reporting Lab: [facility]ERYRDCH [facility]ERN [facility] HOSPITALUSETS [facility] [address] [facility] [address] Performing Lab: [facility]ERYRDCH [facility]ERN [facility]OS[facility]ITALUSETS [facility] [address] [facility] [address] CALCIUM 7.9 mg/dL L 8.5-10.2 Feb 16, 2024 09:[address] [facility] ALBUMIN SERUM Specimen Type: SERUM No comment entered. Ordering Provider: MICHAEL MONTALVO Report Released Date/Time: Jan 14, 2024 11:56 AM Reporting Lab: [facility]ERYRDCH [facility]ERN [facility] HOS[facility]ITALUSETS [facility] [address] [facility] [address] Performing Lab: [facility]ERYRDCH [facility]ERN [facility]OS[facility]ITALUSETS [address] [address] ALBUMIN 3.5 g/dL 3.5-5.0 Feb 16, 2024 09:[address] [facility] ALKALINE PHOSPHATASE SERUM Specimen Type: SER UM No comment entered. Ordering Provider: MONTALVO,MICHAEL A Report Released Date/Time: Jan 14, 2024 11:56 AM Reporting Lab: [facility] SURGERYRCOOSA VALLEY MEDICAL CENTERTRN [facility] HOSPITALUSETS [facility] [address] [facility] [address] Performing Lab: [facility] SURGERYRL TRN [facility]ITALUSETS [facility] [address] [facility] [address] ALKALINE PHOSPHATASE 82 U/L 40-150 Feb 16, 2024 09:[address] [facility]ITALUSEST[facility] CBC BLOOD Specimen Type: BLOOD No comment entered. Ordering Provider: MICHAEL MONTALVO Report Released Date/Time: Jan 14, 2024 11:56 AM Reporting Lab: [facility] SURGERYRCOOSA VALLEY MEDICAL CENTERTRN [facility]OS[facility]ITALUSETS [facility] [address] [facility] [address] Performing Lab: [facility] SURGERYRL [facility]N [facility]ITALUSETS [address] [address] WBC 3.39 10*3/uL L 4.50-11.00 RBC 3.64 10*6/uL L 4.23-5.66 HGB 8.8 g/dL L 12.8-17 HCT 27.1 L 39.2-50.4 MCV 74.5 fL L 82-99 MCHC 32.5 g/dL 30.8-35.1 PLT 200 10*3/uL 140-360 RDW-CV 16.3 H 12.0-16.0 MCH 24.2 pg L 26.2-32.6 Jan 30, 2024 08:[address] [facility]ITALUSEST[facility] PT & INR (COUMADIN) PLASMA Specimen Type: PRITESH BOUDREAUX No comment entered. Ordering Provider: ISACC PETERSEN Report Released Date/Time: Jan 23, 2024 04:08 PM Reporting Lab: [facility] SURGERYRL [facility] FACILITYN [facility]OS[facility]ITALUSETS [facility] [address] [facility] [address] Performing Lab: [facility] SUR[facility]ERYRDCH [facility]ENTERN [facility]OS[facility]ITALUSETS [address] [address] INR 3.0 PROTIME 32.5 s H 10.0-13.1 Jan 23, 2024 10:[address] [facility]ITALUSEST[facility] PT & INR (COUMADIN) PLASMA Specimen Type: PRITESH BOUDREAUX No comment entered. Ordering Provider: LEONOR SANTIAGO Report Released Date/Time: Jan 15, 2024 12:25 PM Reporting Lab: [facility] [place] [facility] [address] [facility] [address] Performing Lab: [facility] [facility] [address] [facility] [address] INR 3.3 PROTIME 36.0 s H 10.0-13.1 Jan 15, 2024 09:33 AM [facility] [place] [facility] PT & INR (COUMADIN) PLASMA Specimen Type: PLAS [place] No comment entered. Ordering Provider: LEONOR SANTIAGO Report Released Date/Time: Jan 08, 2024 11:27 AM Reporting Lab: [facility] SUR[facility]ERYRL [place]N [place] [facility] [address] [facility] [address] Performing Lab: [facility] SURGERYRL WSTRN [facility]ITAL[facility] [address] [facility] [address] INR 2.5 PROTIME 26.9 s H 10.0-13.1 Jan 08, 2024 08:38 AM [facility] SUR[facility]ERYRL TRN [facility]ITAL[facility] PO4 SERUM Specimen Type: SERUM No comment entered. Ordering Provider: MICHAEL MONTALVO Report Released Date/Time: Jan 07, 2024 02:13 PM Reporting Lab: [facility] SURGERYRL [place]N [place] [facility] [address] [facility] [address] Performing Lab: [facility] SUR[facility]ERYRL [place]N [place] [facility] [address] [facility] [address] PO4 4.3 mg/dL 2.5-5.0 Jan 08, 2024 08:38 AM [facility] SUR[facility]ERYRL TRN [facility]ITAL[facility] PTH INTACT SERUM Specimen Type: SERUM No comment entered. Ordering Provider: MICHAEL MONTALVO Report Released Date/Time: Jan 07, 2024 02:13 PM Reporting Lab: [place] [facility] [place] [facility] [address] [facility] [address] Performing Lab: [place] [facility] [place] [facility] [address] [facility] [address] PTH INTACT 420.1 pg/mL H 10-65 Jan 08, 2024 08:38 AM [facility]ERL TRN [facility] URIC ACID SERUM Specimen Type: SERUM No comment entered. Ordering Provider: MICHAEL MONTALVO Report Released Date/Time: Jan 07, 2024 02:13 PM Reporting Lab: [facility]ERYRL [place] [facility] [address] [facility] [address] Performing Lab: [place] [facility] [facility] [address] [facility] [address] URIC ACID 3.2 mg/dL L 3.5-7.2 Jan 08, 2024 08:38 AM [facility]ERYRDCH [facility]ERN [facility]ITALUS[facility] VITAMIN D (25-OH) SERUM Specimen Type: SERUM No comment entered. Ordering Provider: MICHAEL MONTALVO Report Released Date/Time: Jan 07, 2024 02:13 PM Reporting Lab: [facility]ERYRL [place] [facility] [address] [facility] [address] Performing Lab: [facility] SURGERYRL TRN [facility]ITAL[facility] [address] [address] VITAMIN D (25-OH) 29 ng/mL 20-50 Jan 08, 2024 08:[address] [facility] MAGNESIUM SERUM Specimen Type: SERUM No comment entered. Ordering Provider: MICHAEL MONTALVO Report Released Date/Time: Jan 07, 2024 02:13 PM Reporting Lab: [facility] SUR[facility]ERYRL TRN [facility] [address] [address] Performing Lab: [facility] SUR[facility]ERYRL TRN [facility] [address] [address] MAGNESIUM 1.9 mg/dL 1.6-2.6 Jan 08, 2024 08:[address] [facility]ITALUSEST[facility] FERRITIN SERUM Specimen Type: SERUM No comment entered. Ordering Provider: MICHAEL MONTALVO Report Released Date/Time: Jan 07, 2024 02:13 PM Reporting Lab: [facility] SURGERYRCOOSA VALLEY MEDICAL CENTERTRN [facility]ITALUSETS [facility] [address] [facility] [address] Performing Lab: [facility] SURGERYRCOOSA VALLEY MEDICAL CENTERTRN [facility]ITALUSETS [address] [address] FERRITIN 292 ng/mL 20-300 Jan 08, 2024 08:[address] [facility]ITAL[facility] MICROALBUMIN CREATININE RATIO PANEL URINE Spe cimen Type: URINE No comment entered. Ordering Provider: MICHAEL MONTALVO Report Released Date/Time: Jan 07, 2024 02:13 PM Reporting Lab: [facility] [address] [facility] [address] Performing Lab: [address] [address] MICROALBUMIN/CREATININE RATIO 2468.3 mg/g H 0-29.9 MICROALBUMIN,QUANTITATIVE 111.1 mg/dL RR UNAVAIL CREATININE URINE 45.01 mg/dL Jan 08, 2024 08:38 AM [facility] BASIC METABOLIC PANEL (non-fasting) SERUM Spe cimen Type: SERUM No comment entered. Ordering Provider: MICHAEL MONTALVO Report Released Date/Time: Jan 07, 2024 02:13 PM Reporting Lab: [address] [address] Performing Lab: [address] [address] UREA NITROGEN 65 mg/dL H 7-25 GLUCOSE 75 mg/dL 65-100 SODIUM 140 mmol/L 135-145 POTASSIUM 4.6 mmol/L 3.5-5.0 CHLORIDE 106 mmol/L 100-110 CO2 23 meq/L 20-30 CREATININE, Serum 5.84 mg/dL HH 0.50-1.40 eGFR(CKD-EPI 2020) 10 mL/min L >60 Jan 08, 2024 08:38 AM [facility] CHOLESTEROL SERUM Specimen Type: SERUM No comment entered. Ordering Provider: MICHAEL MONTALVO Report Released Date/Time: Jan 07, 2024 02:13 PM Reporting Lab: [address] [address] Performing Lab: [address] [address] CHOLESTEROL 101 mg/dL Jan 08, 2024 08:38 AM [facility] IRON & TIBC PANEL SERUM Specimen Type: SERUM No comment entered. Ordering Provider: MICHAEL MONTALVO Report Released Date/Time: Jan 07, 2024 02:13 PM Reporting Lab: [address] [place] [address] Performing Lab: [place] [facility] [place] [facility] [address] [facility] [address] TIBC 238 ug/dL 204-475 IRON 63 ug/dL 40-160 Transferrin Saturation 26.5 20.0-50.0 Transferrin (TRF) 180 mg/dL L 200-360 Jan 08, 2024 08:38 AM [facility] SUR[facility]ERYRL WSTRN [facility]ITALCH[facility] CALCIUM SERUM Specimen Type: SERUM No comment entered. Ordering Provider: MICHAEL MONTALVO Report Released Date/Time: Jan 07, 2024 02:13 PM Reporting Lab: [facility] SURGERYRL TRN [facility] [address] [facility] [address] Performing Lab: [place] CN[facility] TRN [facility] [address] [facility] [address] CALCIUM 8.2 mg/dL L 8.5-10.2 Jan 08, 2024 08:38 AM [facility]ERYRL [facility]N [facility] ALBUMIN SERUM Specimen Type: SERUM No comment entered. Ordering Provider: MICHAEL MONTALVO Report Released Date/Time: Jan 07, 2024 02:13 PM Reporting Lab: [facility] [address] [facility] [address] Performing Lab: [facility] [address] [address] ALBUMIN 3.8 g/dL 3.5-5.0 Jan 08, 2024 08:38 AM [facility] HDL CHOLESTEROL SERUM Specimen Type: SERUM No comment entered. Ordering Provider: MICHAEL MONTALVO Report Released Date/Time: Jan 07, 2024 02:13 PM Reporting Lab: [facility] [address] [facility] [address] Performing Lab: [facility] [address] [address] HDL CHOLESTEROL 53 mg/dL 40-60 Jan 08, 2024 08:38 AM [facility] ALKALINE PHOSPHATASE SERUM Specimen Type: SER UM No comment entered. Ordering Provider: MICHAEL MONTALVO Report Released Date/Time: Jan 07, 2024 02:13 PM Reporting Lab: [place] [facility] [facility] [address] [facility] [address] Performing Lab: [facility] [place] [facility] [address] [facility] [address] ALKALINE PHOSPHATASE 74 U/L 40-150 Jan 08, 2024 08:38 AM [facility] CBC BLOOD Specimen Type: BLOOD No comment entered. Ordering Provider: MICHAEL MONTALVO Report Released Date/Time: Jan 07, 2024 02:13 PM Reporting Lab: [facility] [place] [facility] [address] [facility] [address] Performing Lab: [facility] [place] [facility] [address] [facility] [address] WBC 3.47 10*3/uL L 4.50-11.00 RBC 3.88 10*6/uL L 4.23-5.66 HGB 9.2 g/dL L 12.8-17 HCT 28.9 L 39.2-50.4 MCV 74.5 fL L 82-99 MCHC 31.8 g/dL 30.8-35.1 PLT 229 10*3/uL 140-360 RDW-CV 15.5 12.0-16.0 MCH 23.7 pg L 26.2-32.6 Jan 08, 2024 08:38 AM [facility] PT & INR (COUMADIN) PLASMA Specimen Type: PLAS MA No comment entered. Ordering Provider: ROCKY TRIPLETT Report Released Date/Time: Jan 02, 2024 02:18 PM Reporting Lab: [facility] [place] [facility] [address] [facility] [address] Performing Lab: [facility] [address] [address] INR 1.9 PROTIME 20.7 s H 10.0-13.1 Jan 02, 2024 10:32 AM [facility] PT & INR (COUMADIN) PLASMA Specimen Type: PLAS MA No comment entered. Ordering Provider: LILY PAT Report Released Date/Time: Dec 29, 2023 03:05 PM Reporting Lab: [facility] [place] [facility] [address] [facility] [address] Performing Lab: [facility] [address] [facility] [address] INR 2.8 PROTIME 30.2 s H 10.0-13.1 Immunizations: All administered on the encounter date This section contains immunizations associated to the Encounter. Immunization Series Date Issued Administered By Site Reaction Lot Number CVX Code Drug Waiter/Waitress Buffet Comment(s) Source COVID-19 (MODERNA), MRNA, LNP-S, PF, 50 MCG/0.5 ML (AGES 12+ YEARS) Jan 30, 2024 DOT ZELAYA LEFT DELTO ID [id number] MODERNA [employer] ADMINISTERE D AT [facility] IE HEP B, ADULT Jan 30, 2024 DOT ZELAYA RIGHT DELTO ID [id number] GLAXOSMITHKLI NE ADMINISTERE D AT [facility] Social History: Smoking Status (Most current) and Tobacco Use (All prior to encounter date) This section includes the most current, and the historical, smoking and tobacco- related health factors from the [place] facility where the Encounter took place. Current Smoking Status This section includes the most current smoking, or tobacco-related health factor, from the [place] facility where the Encounter took place. Date/Time Current Smoking Status Comment Marilyn britton Apr 30, 2023 09:00 AM ND-TOBACCO NEVER USED [place] Tobacco Use History This section includes a history of the smoking, or tobacco-related health factors, that were collected on or before the date of the Encounter. The data comes from the [place] facility where the Encounter took place. Date/Time Smoking Status/Tobacco Use Comment F acility Apr 19, 2022 09:30 AM VA-TOBACCO NEVER USED [place] Nov 29, 2021 10:30 AM VA-TOBACCO FORMER USER [place] Nov 29, 2021 10:30 AM VA-TOBACCO NEVER USED [place] Nov 29, 2021 10:30 AM VA-TOBACCO QUIT 5 TO < 15 YRS [place] Nov 08, 2020 09:30 AM VA-TOBACCO NEVER USED [place] Oct 25, 2019 11:36 AM VA-TOBACCO FORMER USER [place] Oct 25, 2019 11:36 AM VA-TOBACCO QUIT 15 YRS OR MORE [place] Aug 06, 2018 03:18 PM VA-TOBACCO FORMER USER [place] Aug 06, 2018 03:18 PM VA-TOBACCO QUIT 5 TO < 15 YRS [place] Nov 04, 2017 08:39 AM QUIT TOBACCO USE 1 -7 YEARS AGO [place] Apr 24, 2017 08:50 AM QUIT TOBACCO USE 1 -7 YEARS AGO states stopped smoking at least 2 years ago [place] Feb 27, 2017 09:47 AM CURRENT SMOKELESS TOBACCO USER dip [place] Feb 19, 2017 02:22 PM CURRENT SMOKELESS TOBACCO USER uses 2-3 times aday [place] Jul 23, 2016 11:15 AM QUIT TOBACCO USE I N PAST YEAR quit [place] May 10, 2015 08:55 AM QUIT TOBACCO USE > 7 YEARS AGO quitr [place] Jun 11, 2013 08:39 AM QUIT TOBACCO USE > 7 YEARS AGO Pt. stated he quit in 2001. [place] Jan 18, 2005 02:11 PM HISTORY OF SMOKING quit 20+yrs ago [place] Jan 18, 2005 02:11 PM QUIT TOBACCO USE I N PAST YEAR quit 20+ yrs ago [place] September 07, 2004 09:12 AM QUIT TOBACCO USE I N PAST YEAR [place] Nov 02, 2003 08:54 AM LIFETIME NON-SMOKER [place] Nov 02, 2003 08:54 AM LIFETIME NON-TOBACCO USER [place] Nov 02, 2003 08:54 AM QUIT TOBACCO USE I N PAST YEAR d/c >7years ago [place] September 17, 2002 01:12 PM CURRENT SMOKER pt useing smokeless tobacco products plans to stop [place] Encounter Notes: All associated encounter notes This section contains the clinical notes associated to the Encounter. Date/Time Encounter Note(s) Provider Source Jan 30, 2024 02:30 PM NURSING NOTE: LOCAL TITLE: PRIMARY CARE NURSE NOTE STANDARD TITLE: NURSING NOTE DATE OF NOTE: JAN 30, 2024@14:30 ENTRY DATE: JAN 30, 2024@14:30:25 AUTHOR: DOT ZELAYA EXP COSIGNER: URGENCY: STATUS: COMPLETED Hepatitis B Immunization: Hepatitis B vaccine (3 dose or 4 dose series) Administered: HEP B, ADULT Date Administered: Jan 30, 2024 09:00 Waiter/Waitress Buffet: [employer] (TTN) Lot: [id number] Exp Date: Mar 28, 2026 NDC: [id number] Admin Route/Site: INTRAMUSCULAR/RIGHT DELTOID Dosage: 1mL Vaccine Information Statement(s): HEPATITIS B VACCINE VIS August 30, 2022 (CHADIAN) Order By: Policy Administered By: Dot Zelaya Vaccine Information Sheet (VIS) was given to the patient/caregiver, education regarding adverse reactions was discussed, as well as barriers to learning, if any, were acknowledged. 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 Lot: [id number] Exp Date: September 10, [address] [facility]: [id number] Admin Route/Site: INTRAMUSCULAR/LEFT DELTOID Dosage: 0.5mL Vaccine Information Statement(s): COVID-19 MRNA VACCINE (12+ YRS) VACCINE VIS Feb 06, 2023 (CHADIAN) Order By: Policy Administered By: Dot Zelaya Vaccine administered without complications. PAVE Foot Check: Not able to perform complete foot exam today due to: Comment: [place] request Home Telehealth (CCHT) Referral: Patient declines participation in CCHT Program at this time. (Optional) [facility] Documentation: Patient declines to address [facility] at this time. /amanuel/ Dot Zelaya RN Registered Nurse (RN) Signed: 01/30/2024 14:33 DOT ZELAYAFIELD
[2024-12-01 17:30] LABS: MANUAL DIFF FLAG NO
[2024-12-01 17:44] LABS: Hematocrit 22.4 % (42.0-52.0); Hemoglobin 7.2 g/dl (14.0-18.0); Imm Gran Abs Auto 0.02 X10*3/uL (0.00-0.03); Imm Gran Pct Auto 0.4 % (0.0-0.4); Lymphocytes Absolute Auto 1.2 X10*3/uL (1.2-4.9); Mean Corpuscular HGB Conc 32.1 g/dl (31.0-36.0); Mean Corpuscular Hemoglobin 23.5 pg (27.0-33.0); Mean Corpuscular Volume 73.0 fL (80.0-98.0); NRBC Abs Auto 0.000 X10*3/uL (0.0-0.012); NRBC Pct Auto 0.0 /100WBC (0.0-0.2); Platelet Count 148 X10*3/uL (160-400); Red Blood Count 3.07 X10*6/uL (4.60-5.80); White Blood Count 4.8 X10*3/uL (4.8-10.8)
[2024-12-01 18:05] LABS: Alanine Aminotransferase 54 U/L (0-40); Albumin Level 3.5 g/dL (3.5-5.0); Alkaline Phosphatase 83 U/L (39-117); Anion Gap 17 (12-20); Aspartate Amino Transferase 50 U/L (5-37); Blood Urea Nitrogen 92 mg/dL (9-16); Calcium 6.3 mg/dL (8.4-10.2); Carbon Dioxide 21 mmol/L (22-29); Chloride 108 mmol/L (96-108); Estimated Glomerular Filt Rate 5; Potassium 3.4 mmol/L (3.3-5.1); Sodium 143 mmol/L (135-145); Total Protein 6.2 g/dL (6.5-8.0); Uric Acid 6.7 mg/dL (3.4-7.0)
[2024-12-02 04:27] LABS: HBS Num1 5.26 mIU/mL (0-7.99); HBc Num1 0.09 S/CO (0.00-0.79); HBsAGNum1 0.42 S/CO (0.00-0.99); Hepatitis B Surface Antigen Negative (Negative); ~HepC Num1 0.13 S/CO (0.00-0.79); ~Hepatitis B Surface Antibody NONREACTIVE (Nonreactive); ~Hepatitis C Antibody Nonreactive (Nonreactive)
[2024-12-04 11:54] LABS: TS Negative Control Passed; TS Panel A 0; TS Panel B 0; TS Positive Control Passed; TSpotTB Negative (Negative)
== END 2024-12-01 14:41 | disposition home or self-care (01) ==
LOC: HO.HKASLDS 14:40
PROVIDERS: PCP Physician Assistant Medical; Visit Provider Student in an Organized Health Care Education/Training Program
DX: Z51.81 Encounter for therapeutic drug level monitoring (principal); M05.9 Rheumatoid arthritis with rheumatoid factor, unspecified; M1A.39X0 Chronic gout due to renal impairment, multiple sites, without tophus (tophi); Z11.1 Encounter for screening for respiratory tuberculosis; Z11.59 Encounter for screening for other viral diseases; I10 Essential (primary) hypertension; Z79.899 Other long term (current) drug therapy; Z79.52 Long term (current) use of systemic steroids; Z79.620 Long term (current) use of immunosuppressive biologic
CPT/HCPCS: 36415; 80053; 84550; 85025; 85652; 86140; 86481; 86704; 86706; 86803; 87340; 99212